=== PATIENT | female | born 1935 | race Caucasian/White ===

== ENCOUNTER 2018-07-17 23:12 | Inpatient (IN) | payer MEDICARE, OTHER ==
[~2018-07-17] VITALS: Ht 162.6 cm; Wt 73.0 kg
[2018-07-18] VITALS (9 sets, daily range): BP systolic 111–145; BP diastolic 58–82; PULSE 90–137; RESP 18–20; Ht 162.6 cm; Wt 73.0 kg
[2018-07-18] MEDS ORDERED: DILTIAZEM 25 MG INJ IV ONE (00:30)
[2018-07-18] MEDS ORDERED: FUROSEMIDE 40 MG INJ IV ONE (01:00)
[2018-07-18] MEDS ORDERED: FLUT1BLS INHALATION (01:58)
[2018-07-18] MEDS ORDERED: RAMI5CAP64 PO (01:58)
[2018-07-18] MEDS ORDERED: ISOS30TA67 PO (01:58)
[2018-07-18] MEDS ORDERED: RIVA10TA PO (01:58)
[2018-07-18] MEDS ORDERED: FURO20TA3 PO (01:58)
[2018-07-18] MEDS ORDERED: METO-448 PO (01:58)
[2018-07-18] MEDS ORDERED: ASPI-817 PO (01:58)
[2018-07-18] MEDS ORDERED: ATRO INHALATION (01:58)
[2018-07-18] MEDS ORDERED: MET25 PO (01:58)
[2018-07-18] MEDS ORDERED: LEVO500T10 PO (01:58)
[2018-07-18] MEDS ORDERED: LEVA15HF6 INH (01:58)
--- NOTE | 2018-07-18 02:28 | ERD ---
ER Documentation Chief Complaint Chief Complaint SOB, Cough, CP, SHARP x 1 week HPI This is an 83-year-old female comes in with shortness of breath chest pain and cough. Chest pain is mild to moderate intensity no exacerbating or alleviating factors. Patient has a history of A. fib and states she has been sent compliant with her medications. Pain is mild to moderate in intensity with no exacerbating or alleviating factors. ROS All systems reviewed and are negative except as per history of present illness. Medications Home Meds Reported Medications Isosorbide Mononitrate* (Isosorbide Mononitrate*) 30 Mg Tab.er.24h, 30 MG PO DAILY, TAB 07/18/18 Levalbuterol* (Xopenex* HFA) 15 Gm Inha, 2 PUFFS INH Q4H PRN for WHEEZING AND SOB, INHALER 07/18/18 Furosemide* (Furosemide*) 20 Mg Tablet, 20 MG PO DAILY, #60 TAB 07/18/18 Ipratropium [place]* (Atrovent HFA*) 12.9 Gm Aer.w.adap, 2 PUFF INHALATION Q4H for SHORTNESS OF BREATH, #1 INHALER 07/18/18 Methotrexate* (Methotrexate*) 2.5 Mg Tab, 20 MG PO ONCE A WEEK, TAB TAKE 8 TABLETS BY MOUTH EVERY Saturdays07/18/18 Fluticasone/Vilanterol (Breo Ellipta 200-25 Mcg INH) 1 Each Blst.w.dev, 1 PUFF INHALATION DAILY, #1 INHALER 07/18/18 Ramipril (Ramipril) 5 Mg Capsule, 5 MG PO DAILY, CAP 07/18/18 Rivaroxaban* (Xarelto*) 10 Mg Tablet, 10 MG PO DAILY, TAB 07/18/18 Metoprolol Tartrate* (Lopressor*) 25 Mg Tab, 37.5 MG PO BID, #60 TAB 07/18/18 Aspirin* (Aspirin* EC) 81 Mg Tablet.dr, 81 MG PO DAILY, TAB 07/18/18 Levofloxacin* (Levofloxacin*) 500 Mg Tablet, 500 MG PO DAILY, TAB 07/18/18 Allergies Allergies: Coded Allergies: No Known Allergy (Unverified , 07/17/18) PMhx/Soc History of Surgery: No Anesthesia Reaction: No Hx Neurological Disorder: No Hx Respiratory Disorders: Yes (Asthma) Hx Cardiac Disorders: Yes (HTN, AF) Hx Psychiatric Problems: No Hx Alcohol Use: No Hx Substance Use: No Hx Tobacco Use: No Smoking Status: Never smoker Physical Exam Vitals Vital Signs Date Temp Pulse Resp B/P (MAP) Pulse Ox O2 O2 Flow FiO2 Time Delivery Rate 07/18/18 124 22 116/79 95 Room Air 01:56 (91) 07/18/18 102 26 145/88 97 Room Air 00:50 (107) 07/18/18 105 22 160/77 95 Room Air 00:30 (104) 07/17/18 99.7 117 20 174/98 97 23:24 (123) Physical Exam Const: No acute distress Head: Atraumatic Eyes: Normal Conjunctiva ENT: Normal External Ears, Nose and Mouth. Neck: Full range of motion. No meningismus. Resp: Clear to auscultation bilaterally Cardio: Regular rate and rhythm, no murmurs Abd: Soft, non tender, non distended. Normal bowel sounds Skin: No petechiae or rashes Back: No midline or flank tenderness Ext: No cyanosis, or edema Neur: Awake and alert Psych: Normal Mood and Affect Result Diagram: 07/18/18 0006 07/18/18 0005 Results 24 hrs Laboratory Tests Test 07/18/18 00:05 07/18/18 00:06 Prothrombin Time 13.4 Sec Prothrombin Time Ratio 1.0 INR International Normalized Ratio 1.01 Activated Partial Thromboplast Time 30.7 Sec Sodium Level 143 mmol/L Potassium Level 3.8 mmol/L Chloride Level 100 mmol/L Carbon Dioxide Level 27 mmol/L Anion Gap 16 Blood Urea Nitrogen 19 mg/dl Creatinine 0.73 mg/dl Est Glomerular Filtrat Rate mL/min mL/min Glucose Level 147 mg/dl Calcium Level 9.8 mg/dl Total Bilirubin 0.4 mg/dl Direct Bilirubin 0.00 mg/dl Indirect Bilirubin 0.4 mg/dl Aspartate Amino Transf (AST/SGOT) 23 IU/L Alanine Aminotransferase (ALT/SGPT) 24 IU/L Alkaline Phosphatase 73 IU/L Troponin I < 0.012 ng/ml B-Type Natriuretic Peptide 1300 PG/ML Total Protein 8.0 g/dl Albumin 4.5 g/dl Globulin 3.50 g/dl Albumin/Globulin Ratio 1.28 Lipase 61 U/L White Blood Count 11.6 10^3/ul Red Blood Count 4.51 10^6/ul Hemoglobin 13.3 g/dl Hematocrit 40.8 % Mean Corpuscular Volume 90.5 fl Mean Corpuscular Hemoglobin 29.5 pg Mean Corpuscular Hemoglobin Concent 32.6 g/dl Red Cell Distribution Width 12.6 % Platelet Count 282 10^3/UL Mean Platelet Volume 9.9 fl Immature Granulocytes % 0.500 % Neutrophils % 69.1 % Lymphocytes % 17.4 % Monocytes % 12.4 % Eosinophils % 0.3 % Basophils % 0.3 % Nucleated Red Blood Cells % 0.0 /100WBC Immature Granulocytes # 0.060 10^3/ul Neutrophils # 8.0 10^3/ul Lymphocytes # 2.0 10^3/ul Monocytes # 1.4 10^3/ul Eosinophils # 0.0 10^3/ul Basophils # 0.0 10^3/ul Nucleated Red Blood Cells # 0.0 10^3/ul Current Medications Medications Dose Sig/Rhys Start Time Status Last (Trade) Ordered Route PRN Stop Time Admin Dose Reason Admin Diltiazem 10 mg ONCE ONCE 07/18/18 DC 07/18/18 HCl IV 00:30 00:25 (Cardizem Iv) 07/18/18 00:31 Furosemide 40 mg ONCE ONCE 07/18/18 DC 07/18/18 (Lasix) IV 01:00 00:47 07/18/18 01:01 Procedures/MDM Emergency department course: Patient seen by me triage was placed in bed from evaluation be placed on continuous cardiac monitoring given dose of Cardizem intravenously. Given dose of Lasix as well. Diagnostic data: EKG: Rate/Rhythm: Irregular rhythm, tachycardic rate QRS, ST, T-waves: [No changes consistent w/ acute ischemia] Impression: A. fib with RVR Rhythm strip: Post Cardizem infusion Rate/Rhythm: Irregular rhythm, normal rate Impression: Rate controlled atrial fibrillation Chest X-ray 1V Interpreted by me: Soft Tissue: No acute abnormalities Bones: No acute abnormalities Mediastinum/Cardiac Silhouette/Lungs: [No acute abnormalities] Medical decision making: Patient's symptoms are concerning for cardiac cause w ill require inpatient workup and continuous monitoring. Further w/u for ischemia, arrhythmia, PE or dissection will be deferred to the inpatient team. Accepting Care Team: Current data and ongoing care discussed. Time: 1:30 AM Primary Provider: Dr. Kahn Consulting: [XOXOXO] Outstanding Data: none Departure Diagnosis: Primary Impression: Chest pain Chest pain type: unspecified Qualified Codes: R07.9 - Chest pain, unspecified Condition: Serious SAUNDRA MAGALLANES Jul 18, 2018 02:28
[2018-07-18] MEDS: DILTIAZEM 25 MG INJ IV SCH ×3 (06:27→07:54)
[2018-07-18] MEDS: PANTOPRAZOLE (EC) 40 MG TAB PO SCH (06:53)
--- NOTE | 2018-07-18 07:41 | HP ---
Date/Time of Note Date/Time of Note DATE: 07/18/18 TIME: 07:38 Assessment/Plan Lines/Catheters IV Catheter Type (from Nrsg): Saline Lock Assessment/Plan Assessment/Plan 1.A. fibrillation with rapid ventricular rate 2.HTN with chf 3.Bronchial asthma 4.Atherosclerotic cv disease 5.JUVENTINO 6.Low iron level 7.mild elevation of blood sugar. Result Diagram: 07/18/18 0006 07/18/18 0005 Results 24hrs Laboratory Tests Test 07/18/18 00:03 07/18/18 00:05 07/18/18 00:06 07/18/18 05:23 Iron Level 29 L Total Iron Binding 372 Capacity Percent Iron 8 L Saturation Prothrombin Time 13.4 Prothrombin Time 1.0 Ratio INR International 1.01 Normalized Ratio Activated 30.7 Partial Thromboplast Time Sodium Level 143 Potassium Level 3.8 Chloride Level 100 Carbon Dioxide Level 27 Anion Gap 16 H Blood Urea Nitrogen 19 Creatinine 0.73 Est Glomerular Filtrat Rate mL/min Glucose Level 147 Calcium Level 9.8 Total Bilirubin 0.4 Direct Bilirubin 0.00 Indirect Bilirubin 0.4 Aspartate Amino 23 Transf (AST/SGOT) Alanine 24 Aminotransferase (AL T/SGPT) Alkaline Phosphatase 73 Troponin I < 0.012 < 0.012 B-Type Natriuretic 1300 H Peptide Total Protein 8.0 Albumin 4.5 Globulin 3.50 H Albumin/Globulin 1.28 Ratio Lipase 61 White Blood Count 11.6 H Red Blood Count 4.51 Hemoglobin 13.3 Hematocrit 40.8 Mean Corpuscular 90.5 Volume Mean Corpuscular 29.5 Hemoglobin Mean Corpuscular 32.6 Hemoglobin Concent Red Cell 12.6 Distribution Width Platelet Count 282 Mean Platelet Volume 9.9 Immature 0.500 H Granulocytes % Neutrophils % 69.1 Lymphocytes % 17.4 Monocytes % 12.4 H Eosinophils % 0.3 Basophils % 0.3 Nucleated Red Blood 0.0 Cells % Immature 0.060 H Granulocytes # Neutrophils # 8.0 H Lymphocytes # 2.0 Monocytes # 1.4 H Eosinophils # 0.0 Basophils # 0.0 Nucleated Red Blood 0.0 Cells # Magnesium Level 2.0 Creatine Kinase 51 Creatine Kinase 1.3 Index Creatinine Kinase MB 0.64 (Mass) Thyroid Stimulating Pending Hormone (TSH) HPI/ROS Admit Date/Time Admit Date/Time Jul 18, 2018 at 01:52 PMH/Family/Social Past Medical History Medications Current Medications Diltiazem HCl (Cardizem Iv) 10 mg Q1H IV Last administered on 07/18/18at 06:53; Admin Dose 10 MG; Start 07/18/18 at 05:30; Stop 07/18/18 at 08:30 Aspirin (Aspirin) 81 mg DAILY PO ; Start 07/18/18 at 09:00 Fluticasone/ Vilanterol (Breo Ellipta 100-25 Mcg Inh) 1 inh DAILY INH ; Start 07/18/18 at 09:00 Furosemide (Lasix) 20 mg BID DIURETICS IV ; Start 07/18/18 at 09:00 Isosorbide Mononitrate (Imdur) 30 mg DAILY PO ; Start 07/18/18 at 09:00 Ipratropium [place] (Atrovent 0.02% (Neb)) 0.5 mg Q6HWA RESP THERAPY HHN ; Start 07/18/18 at 08:00 Levalbuterol (Xopenex Neb) 0.31 mg Q6H RESP THERAPY PRN HHN SHORTNESS OF BREATH; Start 07/18/18 at 06:00 Metoprolol Tartrate (Lopressor) 37.5 mg BID PO ; Start 07/18/18 at 09:00 Rivaroxaban (Xarelto) 10 mg WITH DINNER PO ; Start 07/18/18 at 18:00 Potassium Chloride (Micro-K) 8 meq DAILY PO ; Start 07/18/18 at 09:00 Pantoprazole (Protonix Tab) 40 mg DAILY@06 PO Last administered on 07/18/18at 06:53; Admin Dose 40 MG; Start 07/18/18 at 06:00 Coded Allergies: No Known Allergy (Unverified , 07/19/18) The patient has seasonal allergies; her breathing getting worse when there is density smoking place. Discussed peanut knots presence of animals around. It become clear that there are places when she feels she cannot tolerate the environment but she did not put much attention to that. Discussed to be more attentive. Allergic test was planned. Social History Smoking Status: Never smoker Exam/Review of Systems Vital Signs Vitals Vital Signs Date Temp Pulse Resp B/P (MAP) Pulse Ox O2 O2 Flow FiO2 Time Delivery Rate 07/18/18 98.9 90 18 135/79 98 Room Air 07:26 (97) 07/18/18 2.0 06:25 GUILLE VICENTE MD Jul 18, 2018 07:41
[2018-07-18] MEDS: FLUTICASONE/VILANTEROL 100-25 INH SCH (08:51)
[2018-07-18] MEDS: POTASSIUM CHLORIDE (SR) 8 MEQ CAP PO SCH (08:53)
[2018-07-18] MEDS ORDERED: ASPIRIN 81 MG TAB PO SCH (09:00)
[2018-07-18] MEDS ORDERED: FUROSEMIDE 20 MG INJ IV SCH (09:00)
[2018-07-18] MEDS ORDERED: METOPROLOL 25 MG TAB PO SCH (09:00)
[2018-07-18] MEDS ORDERED: ISOSORBIDE MONONITRATE(SR)30 MG TAB PO SCH (09:00)
--- NOTE | 2018-07-18 13:15 | RADRPT ---
Echocardiogram Report Patient Name: TONY DALEPatient ID: [id number] : 1935 (83y 1m)Study Date: 07/18/2018 11:39:36 AM Gender: FAccession #: [id number] Tech: Bishop Case [facility] Location: [facility] Ref.Physician: OTILIA WHEELER Height(Cm): BSA: Weight(Kg): Quality: AdequateAccount #: Procedures: Echocardiographic Report: Transthoracic echocardiogram with complete 2D, M-Mode, and doppler examination. Indications: Atrial Fibrillation, and Congestive Heart Failure. Measurements: 2D/M Mode Doppler Measurement Value Normal Range Measurement Value Normal Range LVIDd 2D 3.6 [ 3.8 - 5.2 ] cm AV Mean Ros[place] 1.1 [ 70.0 - 90.0 ] cm/sec LVIDs 2D 3.2 [ 2.2 - 3.5 ] cm AV Mean PG 6.0 [ 2.0 - 4.0 ] mmHg LVPWd 2D 1.1 [ 0.6 - 0.9 ] cm AV Peak Rosendo 2.1 [ 100.0 - 170.0 ] cm/sec IVSd 2D 1.1 [ 0.6 - 0.9 ] cm AV Peak PG 17.0 [ 2.0 - 9.0 ] mmHg AoR Diam 2D 2.9 [ 2.3 - 3.1 ] cm AV VTI 26.4 cm EDV 2D 55.9 [ 46.0 - 106.0 ] ml AI Peak PG 94.0 mmHg ESV 2D 39.4 [ 14.0 - 42.0 ] ml AI Peak Rosendo 4.9 cm/sec EF 2D 29.5 [ 54.0 - 74.0 ] percent AI PHT 484.0 msec LA Dimen 2D 4.0 [ 2.7 - 3.8 ] cm LVOT Mean Rosendo 0.7 [ 60.0 - 80.0 ] cm/sec LVOT Mean PG 2.0 [ 1.0 - 3.0 ] mmHg LVOT Peak Rosendo 1.0 [ 70.0 - 110.0 ] cm/sec LVOT Peak PG 4.0 [ 2.0 - 6.0 ] mmHg LVOT VTI 16.5 [ 20.0 - 30.0 ] cm MV E Peak Rosendo 1.4 [ 60.0 - 130.0 ] cm/sec MV Decel Time 194 [ 104 - 258 ] msec Lat E` Rosendo 0.1 [ 10.0 - 15.0 ] cm/sec Lateral E/E` 23.3 [ 1.0 - 2.0 ] ratio TR Peak Rosendo 2.6 [ 100.0 - 280.0 ] cm/sec TR Peak PG 28.0 mmHg RVSP 36.0 [ 10.0 - 36.0 ] mmHg RA Pressure 8.0 mmHg Findings: Left Ventricle: Normal left ventricular systolic function. Normal left ventricular cavity size. Mild concentric left ventricular hypertrophy. Ejection fraction is visually estimated at 55 %. Tissue Doppler/Mitral Doppler indices are indeterminate in this study due to the presence of atrial fibrillation. Right Ventricle: Normal right ventricular size. Normal right ventricular systolic function. Left Atrium: There is moderate enlargement of left atrium. Right Atrium: There is moderate enlargement of right atrium. Mitral Valve: Normal appearance of the mitral valve. Mild mitral valve regurgitation. Aortic Valve: Normal appearance of the aortic valve. No hemodynamically significant aortic stenosis by doppler. Mild to moderate aortic valve regurgitation. Tricuspid Valve: Normal appearance of the tricuspid valve. Estimated peak PA systolic pressure 36 mmHg. There is mild tricuspid regurgitation. Pulmonic Valve: Pulmonic valve not well visualized. Pericardium: Normal pericardium with no significant pericardial effusion. Aorta: Normal aortic root. IVC: Dilated IVC with respiratory collapse consistent with elevated right atrial pressure. Conclusions: Normal left ventricular systolic function. Normal left ventricular cavity size. Mild concentric left ventricular hypertrophy. Ejection fraction is visually estimated at 55 %. Tissue Doppler/Mitral Doppler indices are indeterminate in this study due to the presence of atrial fibrillation. Mild to moderate aortic valve regurgitation. Estimated peak PA systolic pressure 36 mmHg. Dilated IVC with respiratory collapse consistent with elevated right atrial pressure. Electronically Signed By: Otilia Wheeler 2018-07-18 13:14:57 PDT
[2018-07-18] MEDS ORDERED: METOPROLOL 25 MG TAB PO ONE (13:30)
--- NOTE | 2018-07-18 13:40 | CONS ---
Assessment/Plan Assessment/Plan Hospital Course (Demo Recall) Acute respiratory failure: Likely multifactorial including CHF but also with ronchi/wheezing concerning for asthma exacerbation in setting of recent likely viral URI Acute on chronic diastolic CHF: EF preserved. Mild-mod AR. possibly due to afib with RVR and viral illness Chronic afib with RVR: On Xarelto as outpt but incorrect dose. Should be 20mg d aily as normal renal function. Rates mostly controlled Reported CAD: no obstructive disease on cardiac cath 6 months ago per pt/family HTN Asthma with likely exacerbation -decrease lasix to 20mg PO daily as appears euvolemic -increase to Xarelto 20mg -stop ASA -increase to metoprolol 50mg BID for now. Alternatively may switch to diltiazem with asthma -stop imdur as no obstructive CAD -?steroids/nebs for asthma exacerbation Consultation Date/Type/Reason Admit Date/Time Jul 18, 2018 at 01:52 Date of Consultation: Jul 18, 2018 Type of Consult Cardiology Reason for Consultation Afib, CHF Requesting Provider: GUILLE VICENTE MD Date/Time of Note DATE: 07/18/18 TIME: 13:28 Hx of Present Illness 83 yo F with a h/o chronic afib on Xarelto, chronic diastolic CHF, reported CAD but per pt cardiac cath 6 months ago with no obstructive disease, HTN, asthma, who presented with dyspnea, cough, palpitations. She is being treated for CHF and afib with RVR. She notes that about 10 days ago she developed a cough, sore throat, fevers/chills. She continued to have a dry cough and dyspnea and was given a course of antibiotics. She was not feeling well and had continued dyspnea so she decided to come in for evaluation. She was given IV lasix and IV diltiazem. She feels much better but still has a cough. No chest pain except when she coughs. per hPI Past Medical History per hPI Home Meds Reported Medications Isosorbide Mononitrate* (Isosorbide Mononitrate*) 30 Mg Tab.er.24h, 30 MG PO DAILY, TAB 07/18/18 Levalbuterol* (Xopenex* HFA) 15 Gm Inha, 2 PUFFS INH Q4H PRN for WHEEZING AND SOB, INHALER 07/18/18 Furosemide* (Furosemide*) 20 Mg Tablet, 20 MG PO DAILY, #60 TAB 07/18/18 Ipratropium [place]* (Atrovent HFA*) 12.9 Gm Aer.w.adap, 2 PUFF INHALATION Q4H for SHORTNESS OF BREATH, #1 INHALER 07/18/18 Methotrexate* (Methotrexate*) 2.5 Mg Tab, 20 MG PO ONCE A WEEK, TAB TAKE 8 TABLETS BY MOUTH EVERY Saturdays07/18/18 Fluticasone/Vilanterol (Breo Ellipta 200-25 Mcg INH) 1 Each Blst.w.dev, 1 PUFF INHALATION DAILY, #1 INHALER 07/18/18 Ramipril (Ramipril) 5 Mg Capsule, 5 MG PO DAILY, CAP 07/18/18 Rivaroxaban* (Xarelto*) 10 Mg Tablet, 10 MG PO DAILY, TAB 07/18/18 Metoprolol Tartrate* (Lopressor*) 25 Mg Tab, 37.5 MG PO BID, #60 TAB 07/18/18 Aspirin* (Aspirin* EC) 81 Mg Tablet.dr, 81 MG PO DAILY, TAB 07/18/18 Levofloxacin* (Levofloxacin*) 500 Mg Tablet, 500 MG PO DAILY, TAB 07/18/18 Medications Current Medications Fluticasone/ Vilanterol (Breo Ellipta 100-25 Mcg Inh) 1 inh DAILY INH Last administered on 07/18/18at 08:51; Admin Dose 1 INH; Start 07/18/18 at 09:00 Ipratropium [place] (Atrovent 0.02% (Neb)) 0.5 mg Q6HWA RESP THERAPY HHN ; Start 07/18/18 at 08:00 Levalbuterol (Xopenex Neb) 0.31 mg Q6H RESP THERAPY PRN HHN SHORTNESS OF BREATH; Start 07/18/18 at 06:00 Potassium Chloride (Micro-K) 8 meq DAILY PO Last administered on 07/18/18at 08:53; Admin Dose 8 MEQ; Start 07/18/18 at 09:00 Pantoprazole (Protonix Tab) 40 mg DAILY@06 PO Last administered on 07/18/18at 06:53; Admin Dose 40 MG; Start 07/18/18 at 06:00 Metoprolol Tartrate (Lopressor) 50 mg BID PO ; Start 07/18/18 at 21:00 Rivaroxaban (Xarelto) 20 mg WITH DINNER PO ; Start 07/18/18 at 18:00 Furosemide (Lasix) 20 mg DAILY PO ; Start 07/19/18 at 09:00 Metoprolol Tartrate (Lopressor) 25 mg ONCE ONCE PO Last administered on 07/18/18at 13:27; Admin Dose 25 MG; Start 07/18/18 at 13:30; Stop 07/18/18 at 13:31 Allergies: Coded Allergies: No Known Allergy (Unverified , 07/17/18) Social History Smoking Status: Never smoker Exam/Review of Systems Exam Vitals Vital Signs Date Temp Pulse Resp B/P (MAP) Pulse Ox O2 O2 Flow FiO2 Time Delivery Rate 07/18/18 118 12:00 07/18/18 98.2 18 114/58 95 Room Air 11:09 (76) 07/18/18 2.0 08:10 Constitutional: alert, oriented Psych: no complaints, nl mood/affect Head: normocephalic, atraumatic Neck: supple; No jvd Respiratory: congested cough, crackles/rales (mild at bases), wheezing (mild); No clear to auscultation Cardiovascular: systolic murmur (2/6 REGGIE); No regular rate and rhythm (IRIR), No edema Gastrointestinal: soft, non-tender; No distended Neurological: nl mental status, nl speech Skin: No rash or lesions Results Result Diagram: 07/18/18 0006 07/18/18 0005 Results 24hrs Laboratory Tests Test 07/18/18 00:03 07/18/18 00:05 07/18/18 00:06 07/18/18 05:23 Iron Level 29 L Total Iron Binding 372 Capacity Percent Iron 8 L Saturation Prothrombin Time 13.4 Prothrombin Time 1.0 Ratio INR International 1.01 Normalized Ratio Activated 30.7 Partial Thromboplast Time Sodium Level 143 Potassium Level 3.8 Chloride Level 100 Carbon Dioxide Level 27 Anion Gap 16 H Blood Urea Nitrogen 19 Creatinine 0.73 Est Glomerular Filtrat Rate mL/min Glucose Level 147 Calcium Level 9.8 Total Bilirubin 0.4 Direct Bilirubin 0.00 Indirect Bilirubin 0.4 Aspartate Amino 23 Transf (AST/SGOT) Alanine 24 Aminotransferase (AL T/SGPT) Alkaline Phosphatase 73 Troponin I < 0.012 < 0.012 B-Type Natriuretic 1300 H Peptide Total Protein 8.0 Albumin 4.5 Globulin 3.50 H Albumin/Globulin 1.28 Ratio Lipase 61 White Blood Count 11.6 H Red Blood Count 4.51 Hemoglobin 13.3 Hematocrit 40.8 Mean Corpuscular 90.5 Volume Mean Corpuscular 29.5 Hemoglobin Mean Corpuscular 32.6 Hemoglobin Concent Red Cell 12.6 Distribution Width Platelet Count 282 Mean Platelet Volume 9.9 Immature 0.500 H Granulocytes % Neutrophils % 69.1 Lymphocytes % 17.4 Monocytes % 12.4 H Eosinophils % 0.3 Basophils % 0.3 Nucleated Red Blood 0.0 Cells % Immature 0.060 H Granulocytes # Neutrophils # 8.0 H Lymphocytes # 2.0 Monocytes # 1.4 H Eosinophils # 0.0 Basophils # 0.0 Nucleated Red Blood 0.0 Cells # Magnesium Level 2.0 Creatine Kinase 51 Creatine Kinase 1.3 Index Creatinine Kinase MB 0.64 (Mass) Thyroid Stimulating 2.460 Hormone (TSH) Digoxin Level < 0.4 L Test 07/18/18 09:25 07/18/18 11:56 Urine Color YELLOW Urine Clarity CLEAR Urine pH 5.0 Urine Specific 1.010 [place] Urine Ketones NEGATIVE Urine Nitrite NEGATIVE Urine Bilirubin NEGATIVE Urine Urobilinogen NEGATIVE Urine Leukocyte NEGATIVE Esterase Urine Microscopic 1 RBC Urine Microscopic 1 WBC Urine Bacteria FEW A Urine Mucus FEW A Urine Hemoglobin 2+ H Urine Glucose NEGATIVE Urine Total Protein NEGATIVE Creatine Kinase 43 Creatine Kinase 1.4 Index Creatinine Kinase MB 0.60 (Mass) Troponin I < 0.012 Medications Medication Current Medications Fluticasone/ Vilanterol (Breo Ellipta 100-25 Mcg Inh) 1 inh DAILY INH Last administered on 07/18/18at 08:51; Admin Dose 1 INH; Start 07/18/18 at 09:00 Ipratropium [place] (Atrovent 0.02% (Neb)) 0.5 mg Q6HWA RESP THERAPY HHN ; Start 07/18/18 at 08:00 Levalbuterol (Xopenex Neb) 0.31 mg Q6H RESP THERAPY PRN HHN SHORTNESS OF BREATH; Start 07/18/18 at 06:00 Potassium Chloride (Micro-K) 8 meq DAILY PO Last administered on 07/18/18at 08:53; Admin Dose 8 MEQ; Start 07/18/18 at 09:00 Pantoprazole (Protonix Tab) 40 mg DAILY@06 PO Last administered on 07/18/18at 06:53; Admin Dose 40 MG; Start 07/18/18 at 06:00 Metoprolol Tartrate (Lopressor) 50 mg BID PO ; Start 07/18/18 at 21:00 Rivaroxaban (Xarelto) 20 mg WITH DINNER PO ; Start 07/18/18 at 18:00 Furosemide (Lasix) 20 mg DAILY PO ; Start 07/19/18 at 09:00 Metoprolol Tartrate (Lopressor) 25 mg ONCE ONCE PO Last administered on 07/18/18at 13:27; Admin Dose 25 MG; Start 07/18/18 at 13:30; Stop 07/18/18 at 13:31 OTILIA MARSHALL Jul 18, 2018 13:40
--- NOTE | 2018-07-18 14:10 | CONS ---
DATE OF ADMISSION: 07/18/2018 DATE OF CONSULTATION: TYPE OF CONSULTATION: Pulmonary. REASON FOR CONSULTATION: Shortness of breath. Thank you, Dr. Vicente, for this consultation. HISTORY OF PRESENT ILLNESS: This is an 83-year-old lady with history of congestive cardiac failure, coronary artery disease, obstructive sleep apnea, presents with several-day history of increasing trevor rtness of breath, orthopnea, PND, found to have mildly elevated BNP consistent with congestive cardia c failure. Initial troponins are negative. The patient states her breathing has improved since admi ssion and administration of Lasix. PAST MEDICAL HISTORY: Includes atrial fibrillation on anticoagulation, congestive cardiac failure, o bstructive sleep apnea. MEDICATIONS: Per chart. ALLERGIES: NONE. SOCIAL HISTORY: She is a nonsmoker. No alcohol, no history of drug use. FAMILY HISTORY: Noncontributory. SYSTEMS REVIEW: A 12-point review of systems was negative other than mentioned above. PHYSICAL EXAMINATION: GENERAL: Morbidly obese [place] lady, appears comfortable at rest, in no acute distress. VITAL SIGNS: Currently afebrile, pulse is 93, blood pressure 114/58, O2 saturation 95% on room air. NECK: Supple. No JVD or lymphadenopathy. CARDIAC: S1, S2. No added sounds or murmurs. CHEST: Diminished air entry bilaterally with few rales. ABDOMEN: Soft, nontender. No guarding or rebound. EXTREMITIES: No cyanosis, clubbing, edema. NEUROLOGIC: Grossly intact. No focal deficits. LABORATORY DATA: White count 11.6, hemoglobin 13.3. Chemistry within normal limits. BNP was elevat ed at 1300. DIAGNOSTIC DATA: Chest x-ray was reviewed, which showed no significant infiltrates or effusions. IMPRESSION AND PLAN: 1. Likely acute systolic dysfunction with subsequent transient hypoxemia, now improved with addition of diuretics. 2. Obstructive sleep apnea. 3. Atrial fibrillation, chronic. The patient will require: 1. Continue gentle diuresis. 2. Continue supplemental O2 as needed. 3. Outpatient noninvasive positive pressure ventilation. 4. Anticoagulation for chronic atrial fibrillation. Dictated By: ZULAY WYATT MD SV/NTS Conf#: [id number] DID#: [id number] CC: GUILLE VICENTE MD; OTILIA MARSHALL MD;*EndCC*
[2018-07-18] MEDS: IPRATROPIUM (NEB) 0.5 MG/2.5 ML AMP HHN SCH ×3 (15:53→21:02)
[2018-07-18] MEDS: RIVAROXABAN 20 MG TABLET PO SCH (17:41)
[2018-07-18] MEDS ORDERED: RIVAROXABAN 10 MG TABLET PO SCH (18:00)
[2018-07-18] MEDS: METOPROLOL 50 MG TAB PO SCH (20:37)
[2018-07-18] MEDS ORDERED: METHYLPREDNISOLONE 125 MG INJ IV ONE (21:00)
--- NOTE | 2018-07-18 21:50 | CONS ---
Assessment/Plan Assessment/Plan Hospital Course (Demo Recall) IMPRESSION AND PLAN: leukocytosis REVIEW SMEAR LOOKS REACTIVE MONITOR hypercoagulable state CONT Anticoagulation for chronic atrial fibrillation. HX Low iron level CHECK FERRITIN CHF with acute systolic dysfunction with subsequent transient hypoxemia, now improved with addition of diuretics. Obstructive sleep apnea. ATRIAL fibrillation with rapid ventricular rate HTN with chf Bronchial asthma Atherosclerotic cv disease JUVENTINO mild elevation of blood sugar. Consultation Date/Type/Reason Admit Date/Time Jul 18, 2018 at 01:52 Date of Consultation: Jul 18, 2018 Type of Consult hemeonc Reason for Consultation leukocytosis hypercoagulable state Requesting Provider: GUILLE VICENTE MD Date/Time of Note DATE: 07/18/18 TIME: 21:44 Hx of Present Illness This is an 83-year-old lady with history of congestive cardiac failure, coronary artery disease, obstructive sleep apnea, presents with several-day history of increasing shortness of breath, orthopnea, PND, found to have mildly elevated BNP consistent with congestive cardiac failure. Initial troponins are negative. The patient states her breathing has improved since admission and administration of Lasix. PAST MEDICAL HISTORY: Includes atrial fibrillation on anticoagulation, congestive cardiac failure, obstructive sleep apnea. MEDICATIONS: Per chart. ALLERGIES: NONE. SOCIAL HISTORY: She is a nonsmoker. No alcohol, no history of drug use. FAMILY HISTORY: Noncontributory. SYSTEMS REVIEW: A 12-point review of systems was negative other than mentioned above. Past Medical History Home Meds Reported Medications Isosorbide Mononitrate* (Isosorbide Mononitrate*) 30 Mg Tab.er.24h, 30 MG PO DAILY, TAB 07/18/18 Levalbuterol* (Xopenex* HFA) 15 Gm Inha, 2 PUFFS INH Q4H PRN for WHEEZING AND SOB, INHALER 07/18/18 Furosemide* (Furosemide*) 20 Mg Tablet, 20 MG PO DAILY, #60 TAB 07/18/18 Ipratropium [place]* (Atrovent HFA*) 12.9 Gm Aer.w.adap, 2 PUFF INHALATION Q4H for SHORTNESS OF BREATH, #1 INHALER 07/18/18 Methotrexate* (Methotrexate*) 2.5 Mg Tab, 20 MG PO ONCE A WEEK, TAB TAKE 8 TABLETS BY MOUTH EVERY Saturdays07/18/18 Fluticasone/Vilanterol (Breo Ellipta 200-25 Mcg INH) 1 Each Blst.w.dev, 1 PUFF INHALATION DAILY, #1 INHALER 07/18/18 Ramipril (Ramipril) 5 Mg Capsule, 5 MG PO DAILY, CAP 07/18/18 Rivaroxaban* (Xarelto*) 10 Mg Tablet, 10 MG PO DAILY, TAB 07/18/18 Metoprolol Tartrate* (Lopressor*) 25 Mg Tab, 37.5 MG PO BID, #60 TAB 07/18/18 Aspirin* (Aspirin* EC) 81 Mg Tablet.dr, 81 MG PO DAILY, TAB 07/18/18 Levofloxacin* (Levofloxacin*) 500 Mg Tablet, 500 MG PO DAILY, TAB 07/18/18 Medications Current Medications Fluticasone/ Vilanterol (Breo Ellipta 100-25 Mcg Inh) 1 inh DAILY INH Last administered on 07/18/18at 08:51; Admin Dose 1 INH; Start 07/18/18 at 09:00 Ipratropium [place] (Atrovent 0.02% (Neb)) 0.5 mg Q6HWA RESP THERAPY HHN Last administered on 07/18/18at 21:02; Admin Dose 0.5 MG; Start 07/18/18 at 08:00 Levalbuterol (Xopenex Neb) 0.31 mg Q6H RESP THERAPY PRN HHN SHORTNESS OF BREATH ; Start 07/18/18 at 06:00 Potassium Chloride (Micro-K) 8 meq DAILY PO Last administered on 07/18/18at 08:53; Admin Dose 8 MEQ; Start 07/18/18 at 09:00 Pantoprazole (Protonix Tab) 40 mg DAILY@06 PO Last administered on 07/18/18at 06:53; Admin Dose 40 MG; Start 07/18/18 at 06:00 Metoprolol Tartrate (Lopressor) 50 mg BID PO Last administered on 07/18/18at 20:37; Admin Dose 50 MG; Start 07/18/18 at 21:00 Rivaroxaban (Xarelto) 20 mg WITH DINNER PO Last administered on 07/18/18at 17:41; Admin Dose 20 MG; Start 07/18/18 at 18:00 Furosemide (Lasix) 20 mg DAILY PO ; Start 07/19/18 at 09:00 Ferric Sodium Gluconate Complex 125 mg/Sodium Chloride 100 ml @ 100 mls/hr DAILY@1300 IVPB ; Start 07/19/18 at 13:00; Stop 07/20/18 at 16:00 Methylprednisolone Sodium Succinate (Solu-Medrol) 40 mg ONCE ONCE IV ; Start 07/19/18 at 06:00; Stop 07/19/18 at 06:01 Methylprednisolone Sodium Succinate (Solu-Medrol) 30 mg ONCE IV ; Start 07/20/18 at 06:00; Stop 07/20/18 at 06:01 Methylprednisolone Sodium Succinate (Solu-Medrol) 20 mg ONCE ONCE IV ; Start 07/21/18 at 06:00; Stop 07/21/18 at 06:01 Levofloxacin/ Dextrose 100 ml @ 100 mls/hr Q24H IVPB ; Start 07/18/18 at 21:00; Stop 07/20/18 at 08:00 Allergies: Coded Allergies: No Known Allergy (Unverified , 07/17/18) Social History Smoking Status: Never smoker Exam/Review of Systems Exam Vitals Vital Signs Date Temp Pulse Resp B/P (MAP) Pulse Ox O2 O2 Flow FiO2 Time Delivery Rate 07/18/18 21 21:05 07/18/18 79 18 97 21:03 07/18/18 98.3 145/82 20:04 (103) 07/18/18 Room Air 15:25 07/18/18 2.0 14:25 Exam PHYSICAL EXAMINATION: GENERAL: Morbidly obese Malay lady, appears comfortable at rest, in no acute distress. NECK: Supple. No JVD or lymphadenopathy. CARDIAC: S1, S2. No added sounds or murmurs. CHEST: Diminished air entry bilaterally with few rales. ABDOMEN: Soft, nontender. No guarding or rebound. EXTREMITIES: No cyanosis, clubbing, edema. NEUROLOGIC: Grossly intact. No focal deficits. Results Result Diagram: 07/18/18 0006 07/18/18 0005 Results 24hrs Laboratory Tests Test 07/18/18 00:03 07/18/18 00:05 07/18/18 00:06 07/18/18 05:23 Iron Level 29 L Total Iron Binding 372 Capacity Percent Iron 8 L Saturation Prothrombin Time 13.4 Prothrombin Time 1.0 Ratio INR International 1.01 Normalized Ratio Activated 30.7 Partial Thromboplast Time Sodium Level 143 Potassium Level 3.8 Chloride Level 100 Carbon Dioxide Level 27 Anion Gap 16 H Blood Urea Nitrogen 19 Creatinine 0.73 Est Glomerular Filtrat Rate mL/min Glucose Level 147 Calcium Level 9.8 Total Bilirubin 0.4 Direct Bilirubin 0.00 Indirect Bilirubin 0.4 Aspartate Amino 23 Transf (AST/SGOT) Alanine 24 Aminotransferase (AL T/SGPT) Alkaline Phosphatase 73 Troponin I < 0.012 < 0.012 B-Type Natriuretic 1300 H Peptide Total Protein 8.0 Albumin 4.5 Globulin 3.50 H Albumin/Globulin 1.28 Ratio Lipase 61 White Blood Count 11.6 H Red Blood Count 4.51 Hemoglobin 13.3 Hematocrit 40.8 Mean Corpuscular 90.5 Volume Mean Corpuscular 29.5 Hemoglobin Mean Corpuscular 32.6 Hemoglobin Concent Red Cell 12.6 Distribution Width Platelet Count 282 Mean Platelet Volume 9.9 Immature 0.500 H Granulocytes % Neutrophils % 69.1 Lymphocytes % 17.4 Monocytes % 12.4 H Eosinophils % 0.3 Basophils % 0.3 Nucleated Red Blood 0.0 Cells % Immature 0.060 H Granulocytes # Neutrophils # 8.0 H Lymphocytes # 2.0 Monocytes # 1.4 H Eosinophils # 0.0 Basophils # 0.0 Nucleated Red Blood 0.0 Cells # Magnesium Level 2.0 Creatine Kinase 51 Creatine Kinase 1.3 Index Creatinine Kinase MB 0.64 (Mass) Thyroid Stimulating 2.460 Hormone (TSH) Digoxin Level < 0.4 L Test 07/18/18 09:25 07/18/18 11:56 Urine Color YELLOW Urine Clarity CLEAR Urine pH 5.0 Urine Specific 1.010 [place] Urine Ketones NEGATIVE Urine Nitrite NEGATIVE Urine Bilirubin NEGATIVE Urine Urobilinogen NEGATIVE Urine Leukocyte NEGATIVE Esterase Urine Microscopic 1 RBC Urine Microscopic 1 WBC Urine Bacteria FEW A Urine Mucus FEW A Urine Hemoglobin 2+ H Urine Glucose NEGATIVE Urine Total Protein NEGATIVE Creatine Kinase 43 Creatine Kinase 1.4 Index Creatinine Kinase MB 0.60 (Mass) Troponin I < 0.012 Medications Medication Current Medications Fluticasone/ Vilanterol (Breo Ellipta 100-25 Mcg Inh) 1 inh DAILY INH Last administered on 07/18/18at 08:51; Admin Dose 1 INH; Start 07/18/18 at 09:00 Ipratropium [place] (Atrovent 0.02% (Neb)) 0.5 mg Q6HWA RESP THERAPY HHN Last administered on 07/18/18at 21:02; Admin Dose 0.5 MG; Start 07/18/18 at 08:00 Levalbuterol (Xopenex Neb) 0.31 mg Q6H RESP THERAPY PRN HHN SHORTNESS OF BREATH; Start 07/18/18 at 06:00 Potassium Chloride (Micro-K) 8 meq DAILY PO Last administered on 07/18/18at 08:53; Admin Dose 8 MEQ; Start 07/18/18 at 09:00 Pantoprazole (Protonix Tab) 40 mg DAILY@06 PO Last administered on 07/18/18at 06:53; Admin Dose 40 MG; Start 07/18/18 at 06:00 Metoprolol Tartrate (Lopressor) 50 mg BID PO Last administered on 07/18/18at 20:37; Admin Dose 50 MG; Start 07/18/18 at 21:00 Rivaroxaban (Xarelto) 20 mg WITH DINNER PO Last administered on 07/18/18at 17:41; Admin Dose 20 MG; Start 07/18/18 at 18:00 Furosemide (Lasix) 20 mg DAILY PO ; Start 07/19/18 at 09:00 Ferric Sodium Gluconate Complex 125 mg/Sodium Chloride 100 ml @ 100 mls/hr DAILY@1300 IVPB ; Start 07/19/18 at 13:00; Stop 07/20/18 at 16:00 Methylprednisolone Sodium Succinate (Solu-Medrol) 40 mg ONCE ONCE IV ; Start 07/19/18 at 06:00; Stop 07/19/18 at 06:01 Methylprednisolone Sodium Succinate (Solu-Medrol) 30 mg ONCE IV ; Start 07/20/18 at 06:00; Stop 07/20/18 at 06:01 Methylprednisolone Sodium Succinate (Solu-Medrol) 20 mg ONCE ONCE IV ; Start 07/21/18 at 06:00; Stop 07/21/18 at 06:01 Levofloxacin/ Dextrose 100 ml @ 100 mls/hr Q24H IVPB ; Start 07/18/18 at 21:00; Stop 07/20/18 at 08:00 KTAHLEEN KUMAR MD Jul 18, 2018 21:50
[2018-07-18] MEDS: LEVOFLOXACIN 500MG/D5W (PMX) 100 ML IVPB SCH (22:12)
[2018-07-19] VITALS (16 sets, daily range): BP systolic 112–139; BP diastolic 58–79; PULSE 64–170; RESP 17–20
[2018-07-19] MEDS: PANTOPRAZOLE (EC) 40 MG TAB PO SCH (05:28)
[2018-07-19] MEDS ORDERED: METHYLPREDNISOLONE 40 MG INJ IV ONE (06:00)
--- NOTE | 2018-07-19 07:30 | CONS ---
Assessment/Plan Assessment/Plan Hospital Course (Demo Recall) Acute respiratory failure: Likely multifactorial including CHF but also with ronchi/wheezing concerning for asthma exacerbation in setting of recent likely viral URI. Now improved Acute on chronic diastolic CHF: EF preserved. Mild-mod AR. possibly due to afib with RVR and viral illness. Euvolemic on exam Chronic afib with RVR: On Xarelto as outpt but incorrect dose. Should be 20mg daily as normal renal function. Rates controlled (<110) now Reported CAD: no obstructive disease on cardiac cath 6 months ago per pt/family HTN Asthma with likely exacerbation -lasix 20mg PO daily to keep euvolemic -Xarelto 20mg -metoprolol 50mg BID. Alternatively may switch to diltiazem if asthma does not improve -asthma management per pulm/primary Consultation Date/Type/Reason Admit Date/Time Jul 18, 2018 at 01:52 Initial Consult Date 07/18/18 Type of Consult Cardiology Requesting Provider: GUILLE VICENTE MD Date/Time of Note DATE: 07/19/18 TIME: 07:28 24 HR Interval Summary Free Text/Dictation Still with night sweats. Otherwise breathing has improved. Walked yesterday with minimal SOB. HR mostly <100s Exam/Review of Systems Exam Vitals Vital Signs Date Temp Pulse Resp B/P (MAP) Pulse Ox O2 O2 Flow FiO2 Time Delivery Rate 07/19/18 105 04:22 07/19/18 98.6 20 120/58 95 04:14 (78) 07/18/18 21 21:05 07/18/18 Room Air 15:25 07/18/18 2.0 14:25 Intake and Output 07/18/18 07/18/18 07/19/18 1515:00 23:00 07:00 IntakeIntake Total 240 ml 680 ml 300 ml BalanceBalance 240 ml 680 ml 300 ml Constitutional: alert, oriented Psych: no complaints, nl mood/affect Head: normocephalic, atraumatic Neck: No jvd Respiratory: No clear to auscultation (ronchi left base), No wheezing Cardiovascular: systolic murmur (2/6 REGGIE); No regular rate and rhythm, No edema Gastrointestinal: soft, non-tender; No distended Neurological: nl mental status, nl speech Results Result Diagram: 07/18/18 0006 07/18/18 0005 Results 24hrs Laboratory Tests Test 07/18/18 09:25 07/18/18 11:56 07/19/18 05:15 Urine Color YELLOW Urine Clarity CLEAR Urine pH 5.0 Urine Specific [place] 1.010 Urine Ketones NEGATIVE Urine Nitrite NEGATIVE Urine Bilirubin NEGATIVE Urine Urobilinogen NEGATIVE Urine Leukocyte Esterase NEGATIVE Urine Microscopic RBC 1 Urine Microscopic WBC 1 Urine Bacteria FEW A Urine Mucus FEW A Urine Hemoglobin 2+ H Urine Glucose NEGATIVE Urine Total Protein NEGATIVE Creatine Kinase 43 Creatine Kinase Index 1.4 Creatinine Kinase MB (Mass) 0.60 Troponin I < 0.012 Ferritin 125.0 Medications Medication Current Medications Fluticasone/ Vilanterol (Breo Ellipta 100-25 Mcg Inh) 1 inh DAILY INH Last administered on 07/18/18at 08:51; Admin Dose 1 INH; Start 07/18/18 at 09:00 Ipratropium [place] (Atrovent 0.02% (Neb)) 0.5 mg Q6HWA RESP THERAPY HHN Last administered on 07/18/18at 21:02; Admin Dose 0.5 MG; Start 07/18/18 at 08:00 Levalbuterol (Xopenex Neb) 0.31 mg Q6H RESP THERAPY PRN HHN SHORTNESS OF BREATH; Start 07/18/18 at 06:00 Potassium Chloride (Micro-K) 8 meq DAILY PO Last administered on 07/18/18at 08:53; Admin Dose 8 MEQ; Start 07/18/18 at 09:00 Pantoprazole (Protonix Tab) 40 mg DAILY@06 PO Last administered on 07/19/18at 05:28; Admin Dose 40 MG; Start 07/18/18 at 06:00 Metoprolol Tartrate (Lopressor) 50 mg BID PO Last administered on 07/18/18at 20:37; Admin Dose 50 MG; Start 07/18/18 at 21:00 Rivaroxaban (Xarelto) 20 mg WITH DINNER PO Last administered on 07/18/18at 17:41; Admin Dose 20 MG; Start 07/18/18 at 18:00 Furosemide (Lasix) 20 mg DAILY PO ; Start 07/19/18 at 09:00 Ferric Sodium Gluconate Complex 125 mg/Sodium Chloride 100 ml @ 100 mls/hr DAILY@1300 IVPB ; Start 07/19/18 at 13:00; Stop 3/22/19 at 16:00 Methylprednisolone Sodium Succinate (Solu-Medrol) 30 mg ONCE IV ; Start 07/20/18 at 06:00; Stop 07/20/18 at 06:01 Methylprednisolone Sodium Succinate (Solu-Medrol) 20 mg ONCE ONCE IV ; Start 07/21/18 at 06:00; Stop 07/21/18 at 06:01 Levofloxacin/ Dextrose 100 ml @ 100 mls/hr Q24H IVPB Last administered on 07/18/18at 22:12; Admin Dose 100 MLS/HR; Start 07/18/18 at 21:00; Stop 07/20/18 at 08:00 OTILIA MARSHALL Jul 19, 2018 07:30
[2018-07-19] MEDS: POTASSIUM CHLORIDE (SR) 8 MEQ CAP PO SCH (08:37)
[2018-07-19] MEDS: METOPROLOL 50 MG TAB PO SCH ×2 (08:37→21:04)
[2018-07-19] MEDS: FLUTICASONE/VILANTEROL 100-25 INH SCH (08:37)
[2018-07-19] MEDS: FUROSEMIDE 20 MG TAB PO SCH (08:37)
[2018-07-19] MEDS: IPRATROPIUM (NEB) 0.5 MG/2.5 ML AMP HHN SCH ×3 (08:45→20:44)
[2018-07-19] MEDS ORDERED: DILTIAZEM 30 MG TAB PO SCH (09:30)
[2018-07-19] MEDS ORDERED: DILTIAZEM (CD) 120 MG CAP PO ONE ×2 (09:40→10:00)
[2018-07-19] MEDS: DILTIAZEM (CD) 120 MG CAP PO SCH (09:46)
--- NOTE | 2018-07-19 11:57 | PN ---
Date/Time of Note Date/Time of Note DATE: 07/19/18 TIME: 11:51 Assessment/Plan VTE Prophylaxis Risk score (from Ns)>0 risk: 3 SCD applied (from [facility] [place] No SCD contraindicated: low risk/ambulating Pharmacological prophylaxis: LMWH Lines/Catheters IV C[facility]ter Type (from [facility] [place] line still needed: No Urinary Cath still in place: No Reason Cath still needed: urinary retention Assessment/Plan Assessment/Plan 1. Bronchial asthma exacerbation after upper respiratory infection, getting worse now with worsening of her shortness of breath and chest pain while coughing and moderate amount of yellowish sputum production; almost no change comparing with the yesterday's evaluation. 2. Hypertensive heart disease with systolic dysfunction; now improved with addition of diuretics.Continue gentle diuresis 3.hypoxemia-improving- Continue supplemental O2 as needed. 4. Obstructive sleep apnea. 5. Atrial fibrillation, with rapid ventricular rate currently on Xarelto .not known degenerative Cardizem before or digoxin .ance chronic. 6. Bronchitis 7. Bilateral chest pain most probably pleuritic 8. Very low iron level 9. Bilateral bunions 10. Osteoarthritis 11. Loss of taste 12. Weight loss due to not eating particularly last 2 weeks 13. Atherosclerotic cardiovascular disease status post angiography; no details are available for further clarification of coronary artery status. 14. The patient is using peanuts knots working in the garden and not putting attention to being in the environment of a sharp orders, colons, perfumes, animals, smoking people, and other sources of possible allergy. Discussed to be more attentive further allergy. Evaluation will be done. Result Diagram: 07/18/18 0006 07/18/18 0005 Results 24hrs Laboratory Tests Test 07/18/18 11:56 07/19/18 05:15 Creatine Kinase 43 Creatine Kinase Index 1.4 Creatinine Kinase MB (Mass) 0.60 Troponin I < 0.012 Ferritin 125.0 Subjective 24 Hr Interval Summary Free Text/Dictation Still wheezing. Cough with very sticky yellowish sputum production without blood. No fever and chills. Subjective hx not possible: pt critical status Constitutional: improved, poor po, requiring O2; No no complaints, No chills, No diaphoresis, No disoriented, No febrile, No requiring IVF, No other Eyes: No no complaints, No pain, No discharge, No redness, No visual change, No other ENT: congestion, sore throat; No no complaints, No bleeding, No pain, No discharge, No dysphagia, No other Respiratory: cough, pleuritic pain, shortness of breath, sputum, wheezing; No no complaints, No pain, No other Cardiovascular: chest pain, lightheadedness; No no complaints, No edema, No orthopenea, No palpitations, No paroxysmal nocturnal dyspnea, No other Gastrointestinal: passing stool; No no complaints, No pain, No blood, No constipation, No decreased appetite, No diarrhea, No flatus, No nausea, No vomiting, No other Genitourinary: dysuria; No no complaints, No bleeding, No discharge, No flank pain, No hematuria, No other Musculoskeletal: back pain, bone/joint pain, neck pain; No no complaints, No restricted range of motion, No swelling, No other Skin: pruritis; No no complaints, No bruising, No erythema, No laceration, No rash, No skin lesions, No other Neurologic: headache; No no complaints, No confusion, No dizziness, No focal-weakness, No syncope, No seizure, No other Exam/Review of Systems Exam Vitals Vital Signs Date Temp Pulse Resp B/P (MAP) Pulse Ox O2 O2 Flow FiO2 Time Delivery Rate 07/19/18 98.0 94 18 131/79 96 Room Air 11:44 (96) 07/19/18 08:48 07/18/18 2.0 14:25 Intake and Output 07/18/18 07/18/18 07/19/18 1414:59 22:59 06:59 IntakeIntake Total 240 ml 680 ml 300 ml BalanceBalance 240 ml 680 ml 300 ml Constitutional: alert, oriented, well developed, distress, frail, obese; No non-verbal, No other Psych: anxiety; No no complaints, No nl mood/affect, No confusion, No depression, No suicidal, No other Head: normocephalic, atraumatic; No lacerations, No hematomas, No other Eyes: EOMI, PERRL; No nl conjunctiva, No nl lids, No nl sclera, No icteric, No fundi, disc, No other ENMT: nl nasal mucosa & septum (Inferior dentures removed.), tympanic membranes; No nl external ears & nose, No nl lips & teeth, No mucosa pink and moist, No intubated, No other Neck: jvd, bruits; No supple, No non-tender, No masses, No thyromegaly, No nuchal rigidity, No other Respiratory: crackles/rales, diminished breath sounds, wheezing; No clear to auscultation, No normal air movement, No congested cough, No intercostal retraction, No labored breathing, No respirations, No tactile fremitus, No other Cardiovascular: nl pulses, irregular rhythm; No regular rate and rhythm, No bruits, No diastolic murmur, No edema, No gallop, No jugular venous distention (JVD), No murmurs/extra sounds, No rub, No systolic murmur, No S3, No S4, No other Gastrointestinal: soft, distended; No nl liver, spleen, No non-tender, No ascites, No bowel sounds, No firm, No hepatomegaly, No mass, No rebound or guarding, No splenomegaly, No surgical scars, No tender, No other Musculoskeletal: joint tenderness, muscle tone; No nl extremities to inspection, No nl gait and stance, No muscle weakness, No range of motion, No spine non-tender, No swelling, No other Extremities: normal pulses; No calf tenderness, No cyanosis, No clubbing, No edema, No pitting pedal edema, No palpable cord, No tenderness, No other Neurological: CONTRIBUTION SOLICITOR II-XII intact, confused; No nl mental status, No nl speech, No nl strength, No DTR's symmetric, No focal weakness, No lethargic, No numbness, No reflexes, No unresponsive, No other Skin: nl turgor (Decreased.); No rash or lesions, No diaphoresis, No ecchymosis, No laceration, No puncture, No other Lymph: No nl lymph nodes, No enlarged, No nontender, No other Results Results 24hrs Laboratory Tests Test 07/18/18 11:56 07/19/18 05:15 Creatine Kinase 43 Creatine Kinase Index 1.4 Creatinine Kinase MB (Mass) 0.60 Troponin I < 0.012 Ferritin 125.0 Medications Medication Current Medications Fluticasone/ Vilanterol (Breo Ellipta 100-25 Mcg Inh) 1 inh DAILY INH Last administered on 07/19/18at 08:37; Admin Dose 1 INH; Start 07/18/18 at 09:00 Ipratropium [place] (Atrovent 0.02% (Neb)) 0.5 mg Q6HWA RESP THERAPY HHN Last administered on 07/19/18at 08:45; Admin Dose 0.5 MG; Start 07/18/18 at 08:00 Levalbuterol (Xopenex Neb) 0.31 mg Q6H RESP THERAPY PRN HHN SHORTNESS OF BREATH; Start 07/18/18 at 06:00 Potassium Chloride (Micro-K) 8 meq DAILY PO Last administered on 07/19/18at 08:37; Admin Dose 8 MEQ; Start 07/18/18 at 09:00 Pantoprazole (Protonix Tab) 40 mg DAILY@06 PO Last administered on 07/19/18at 05:28; Admin Dose 40 MG; Start 07/18/18 at 06:00 Metoprolol Tartrate (Lopressor) 50 mg BID PO Last administered on 07/19/18at 08:37; Admin Dose 50 MG; Start 07/18/18 at 21:00 Rivaroxaban (Xarelto) 20 mg WITH DINNER PO Last administered on 07/18/18at 17:41; Admin Dose 20 MG; Start 07/18/18 at 18:00 Furosemide (Lasix) 20 mg DAILY PO Last administered on 07/19/18at 08:37; Admin Dose 20 MG; Start 07/19/18 at 09:00 Ferric Sodium Gluconate Complex 125 mg/Sodium Chloride 100 ml @ 100 mls/hr DAILY@1300 IVPB ; Start 07/19/18 at 13:00; Stop 07/20/18 at 16:00 Methylprednisolone Sodium Succinate (Solu-Medrol) 30 mg ONCE IV ; Start 07/20/18 at 06:00; Stop 07/20/18 at 06:01 Methylprednisolone Sodium Succinate (Solu-Medrol) 20 mg ONCE ONCE IV ; Start 07/21/18 at 06:00; Stop 07/21/18 at 06:01 Levofloxacin/ Dextrose 100 ml @ 100 mls/hr Q24H IVPB Last administered on 07/18/18at 22:12; Admin Dose 100 MLS/HR; Start 07/18/18 at 21:00; Stop 07/20/18 at 08:00 Diltiazem HCl (Cardizem Cd) 120 mg DAILY PO Last administered on 07/19/18at 09:46; Admin Dose 120 MG; Start 07/19/18 at 09:44 GUILLE VICENTE MD Jul 19, 2018 11:57
--- NOTE | 2018-07-19 11:57 | HP ---
Date/Time of Note Date/Time of Note DATE: 07/18/18 TIME: 20:58 Assessment/Plan VTE Prophylaxis Risk score (from Ns)>0 risk: 4 SCD applied (from Ns): No SCD contraindicated: low risk/ambulating Pharmacological prophylaxis: LMWH Lines/Catheters IV [facility]from [facility] [place] line still needed: No Urinary Cath still in place: No Reason Cath still needed: urinary retention Assessment/Plan Assessment/Plan 1. Bronchial asthma exacerbation after upper respiratory infection, getting worse now with worsening of her shortness of breath and chest pain while coughing and moderate amount of yellowish sputum production 2. Hypertensive heart disease with systolic dysfunction; now improved with addition of diuretics.Continue gentle diuresis 3.hypoxemia-improving- Continue supplemental O2 as needed. 4. Obstructive sleep apnea. 5. Atrial fibrillation, with rapid ventricular rate currently on Xarelto .not known degenerative Cardizem before or digoxin .unknown compliance chronic. 6. Bronchitis 7. Bilateral chest pain most probably pleuritic 8. Very low iron level 9. Bilateral bunions 10. Osteoarthritis 11. Loss of taste 12. Weight loss due to not eating particularly last 2 weeks 13. Atherosclerotic cardiovascular disease status post angiography; no details are available for further clarification of coronary artery status. Result Diagram: 07/18/18 0006 07/18/18 0005 Results 24hrs Laboratory Tests Test 07/18/18 00:03 07/18/18 00:05 07/18/18 00:06 07/18/18 05:23 Iron Level 29 L Total Iron Binding 372 Capacity Percent Iron 8 L Saturation Prothrombin Time 13.4 Prothrombin Time 1.0 Ratio INR International 1.01 Normalized Ratio Activated 30.7 Partial Thromboplast Time Sodium Level 143 Potassium Level 3.8 Chloride Level 100 Carbon Dioxide Level 27 Anion Gap 16 H Blood Urea Nitrogen 19 Creatinine 0.73 Est Glomerular Filtrat Rate mL/min Glucose Level 147 Calcium Level 9.8 Total Bilirubin 0.4 Direct Bilirubin 0.00 Indirect Bilirubin 0.4 Aspartate Amino 23 Transf (AST/SGOT) Alanine 24 Aminotransferase (AL T/SGPT) Alkaline Phosphatase 73 Troponin I < 0.012 < 0.012 B-Type Natriuretic 1300 H Peptide Total Protein 8.0 Albumin 4.5 Globulin 3.50 H Albumin/Globulin 1.28 Ratio Lipase 61 White Blood Count 11.6 H Red Blood Count 4.51 Hemoglobin 13.3 Hematocrit 40.8 Mean Corpuscular 90.5 Volume Mean Corpuscular 29.5 Hemoglobin Mean Corpuscular 32.6 Hemoglobin Concent Red Cell 12.6 Distribution Width Platelet Count 282 Mean Platelet Volume 9.9 Immature 0.500 H Granulocytes % Neutrophils % 69.1 Lymphocytes % 17.4 Monocytes % 12.4 H Eosinophils % 0.3 Basophils % 0.3 Nucleated Red Blood 0.0 Cells % Immature 0.060 H Granulocytes # Neutrophils # 8.0 H Lymphocytes # 2.0 Monocytes # 1.4 H Eosinophils # 0.0 Basophils # 0.0 Nucleated Red Blood 0.0 Cells # Magnesium Level 2.0 Creatine Kinase 51 Creatine Kinase 1.3 Index Creatinine Kinase MB 0.64 (Mass) Thyroid Stimulating 2.460 Hormone (TSH) Digoxin Level < 0.4 L Test 07/18/18 09:25 07/18/18 11:56 Urine Color YELLOW Urine Clarity CLEAR Urine pH 5.0 Urine Specific 1.010 [place] Urine Ketones NEGATIVE Urine Nitrite NEGATIVE Urine Bilirubin NEGATIVE Urine Urobilinogen NEGATIVE Urine Leukocyte NEGATIVE Esterase Urine Microscopic 1 RBC Urine Microscopic 1 WBC Urine Bacteria FEW A Urine Mucus FEW A Urine Hemoglobin 2+ H Urine Glucose NEGATIVE Urine Total Protein NEGATIVE Creatine Kinase 43 Creatine Kinase 1.4 Index Creatinine Kinase MB 0.60 (Mass) Troponin I < 0.012 HPI/ROS Admit Date/Time Admit Date/Time Jul 18, 2018 at 01:52 Hx of Present Illness History was taken from patient and by conversation with ER physician and RN she was doing fine until about 10 days ago. When she developed symptoms consistent with upper respiratory infection. She had a history of coronary artery disease status post angiography according to patient with no significant coronary artery narrowing ,HTN, asthma, who presented with dyspnea, cough, palpitations. She notes that about 10 days ago she developed a cough, sore throat, fevers/chills. She continued to have a dry cough and dyspnea and was given a course of antibiotics. She does not remember remember what kind of antibiotics were given .she was not feeling well and had continued dyspnea so she decided to come in for evaluation. The day prior to admission she become more severe shortness of breath and started wheezing but she was coughing she was having a severe pain in bilateral chest areas; in the emergency room she was given IV lasix and IV diltiazem after which her heart rate came down but shortness of breath and cough while continuing. She feels much better but still has a cough. No chest pain now. But when she coughs the pain in bilateral hypochondrial area and severe diarrhea is very severe.. ROS Constitutional: improved ( mouth is dry), chills, diaphoresis, fatigue, nausea, poor po, weight change, other (Patient had lost taste) Eyes: No no complaints, No pain, No discharge, No redness, No visual change, No other ENT: congestion, sore throat Respiratory: cough, pleuritic pain, shortness of breath, sputum, other (Sputum is yellowish color denies hemoptysis or hematemesis.); No no complaints, No pain, No wheezing Cardiovascular: chest pain, lightheadedness, orthopenea, palpitations, paroxysmal nocturnal dyspnea (9 her shortness of breath is getting worse however she is having only one pillow orthopnea. Her heart is beating more fast.); No no complaints, No edema, No other Gastrointestinal: No no complaints, No pain, No blood, No constipation, No decreased appetite, No diarrhea, No flatus, No nausea, No passing stool, No vomiting, No other Genitourinary: flank pain; No no complaints, No bleeding, No dysuria, No discharge, No hematuria, No other Musculoskeletal: back pain, bone/joint pain, neck pain; No no complaints, No restricted range of motion, No swelling, No other Skin: rash, skin lesions; No no complaints, No bruising, No erythema, No laceration, No pruritis, No other Neurologic: dizziness, headache; No no complaints, No confusion, No focal-weakness, No syncope, No seizure, No other Endocrine: polydypsia, dry skin; No no complaints, No polyuria, No temp intolerance, No weight change, No other Lymphatic: tender nodes; No no complaints, No adenopathy, No lymphadema, No other Psychological: anxiety; No no complaints, No nl mood/affect, No confusion, No depression, No suicidal, No other Immunologic: No no complaints, No immunodeficiency, No pruritis, No rhinitis, No urticaria, No other PMH/Family/Social Past Medical History Medical History: angina, congestive heart failure, coronary artery disease, hypertension, other (Asthma.) Medications Current Medications Fluticasone/ Vilanterol (Breo Ellipta 100-25 Mcg Inh) 1 inh DAILY INH Last administered on 07/18/18 08:51; Admin Dose 1 INH; Start 07/18/18 at 09:00 Ipratropium [place] (Atrovent 0.02% (Neb)) 0.5 mg Q6HWA RESP THERAPY HHN Last administered on 07/18/18at 15:54; Admin Dose 0.5 MG; Start 07/18/18 at 08:00 Levalbuterol (Xopenex Neb) 0.31 mg Q6H RESP THERAPY PRN HHN SHORTNESS OF BREATH; Start 07/18/18 at 06:00 Potassium Chloride (Micro-K) 8 meq DAILY PO Last administered on 07/18/18 08:53; Admin Dose 8 MEQ; Start 07/18/18 at 09:00 Pantoprazole (Protonix Tab) 40 mg DAILY@06 PO Last administered on 07/18/18 06:53; Admin Dose 40 MG; Start 07/18/18 at 06:00 Metoprolol Tartrate (Lopressor) 50 mg BID PO Last administered on 07/18/18at 20:37; Admin Dose 50 MG; Start 07/18/18 at 21:00 Rivaroxaban (Xarelto) 20 mg WITH DINNER PO Last administered on 07/18/18at 17:41; Admin Dose 20 MG; Start 07/18/18 at 18:00 Furosemide (Lasix) 20 mg DAILY PO ; Start 07/19/18 at 09:00 Coded Allergies: No Known Allergy (Unverified , 07/17/18) Past Surgical History Past Surgical Hx: other (Status post cataract ectomy bilaterally.) Family History Significant Family History: no pertinent family hx Social History Alcohol Use: none Smoking Status: Never smoker Drug Use: none Exam/Review of Systems Vital Signs Vitals Vital Signs Date Temp Pulse Resp B/P (MAP) Pulse Ox O2 O2 Flow FiO2 Time Delivery Rate 07/18/18 115 20:42 07/18/18 98.3 20 145/82 94 20:04 (103) 07/18/18 Room Air 15:25 07/18/18 2.0 14:25 Exam Constitutional: alert, oriented, well developed, distress, frail; No non-verbal, No other Psych: anxiety; No no complaints, No nl mood/affect, No confusion, No depression, No suicidal, No other Head: normocephalic, atraumatic; No lacerations, No hematomas, No other Eyes: EOMI, nl lids, PERRL; No nl conjunctiva, No nl sclera, No icteric, No fundi, disc, No other ENMT: No nl external ears & nose, No nl lips & teeth, No nl nasal mucosa & septum, No mucosa pink and moist, No intubated, No tympanic membranes, No other Neck: jvd, bruits, thyromegaly, nuchal rigidity; No supple, No non-tender, No masses, No other Respiratory: congested cough, diminished breath sounds, wheezing; No clear to auscultation, No crackles/rales, No intercostal retraction, No labored breathing, No respirations, No tactile fremitus, No other Cardiovascular: irregular rhythm, jugular venous distention (JVD), systolic murmur; No regular rate and rhythm, No nl pulses, No bruits, No diastolic murmur, No edema, No gallop, No murmurs/extra sounds, No rub, No S3, No S4, No other Gastrointestinal: soft, bowel sounds; No nl liver, spleen, No non-tender, No ascites, No distended, No firm, No hepatomegaly, No mass, No rebound or guarding, No splenomegaly, No surgical scars, No tender, No other Genitourinary - Female: nl adnexae, nl external genitalia, CVA tenderness; No CMT, No uterus, No other Musculoskeletal: joint tenderness, muscle tone, muscle weakness; No nl extremities to inspection, No nl gait and stance, No range of motion, No spine non-tender, No swelling, No other Extremities: No normal pulses, No calf tenderness, No cyanosis, No clubbing, No edema, No pitting pedal edema, No palpable cord, No tenderness, No other Neurological: AUDIT ASSOCIATE II-XII intact Skin: nl turgor (Decreased.); No rash or lesions, No diaphoresis, No ecchymosis, No laceration, No puncture, No other Lymph: nl lymph nodes; No enlarged, No nontender, No other [place] MTZ MD Jul 18, 2018 21:13
--- NOTE | 2018-07-19 12:19 | CONS ---
Consult Date/Type/Reason Admit Date/Time Jul 18, 2018 at 01:52 Initial Consult Date 07/18/18 Type of Consult Pulmonary Requesting Provider: GUILLE VICENTE MD Date/Time of Note DATE: 07/19/18 TIME: 12:18 Subjective Still with moderate wheezing. Objective Vital Signs Date Temp Pulse Resp B/P (MAP) Pulse Ox O2 O2 Flow FiO2 Time Delivery Rate 07/19/18 98.0 94 18 131/79 96 Room Air 11:44 (96) 07/19/18 08:48 07/18/18 2.0 14:25 Intake and Output 07/18/18 07/18/18 07/19/18 1515:00 23:00 07:00 IntakeIntake Total 240 ml 680 ml 300 ml BalanceBalance 240 ml 680 ml 300 ml Exam PHYSICAL EXAMINATION: GENERAL: Morbidly obese [place] lady, appears comfortable at rest, in no acute distress. VITAL SIGNS: NECK: Supple. No JVD or lymphadenopathy. CARDIAC: S1, S2. No added sounds or murmurs. CHEST: Diminished air entry bilaterally with few rales. ABDOMEN: Soft, nontender. No guarding or rebound. EXTREMITIES: No cyanosis, clubbing, edema. NEUROLOGIC: Grossly intact. No focal deficits. Vent Setting Fraction of Inspired Oxygen pe: 21 Results/Medications Result Diagram: 07/18/18 0006 07/18/18 0005 Results 24 hrs Laboratory Tests Test 07/19/18 05:15 Ferritin 125.0 Medications Current Medications Fluticasone/ Vilanterol (Breo Ellipta 100-25 Mcg Inh) 1 inh DAILY INH Last administered on 07/19/18at 08:37; Admin Dose 1 INH; Start 07/18/18 at 09:00 Ipratropium [place] (Atrovent 0.02% (Neb)) 0.5 mg Q6HWA RESP THERAPY HHN Last administered on 07/19/18at 08:45; Admin Dose 0.5 MG; Start 07/18/18 at 08:00 Levalbuterol (Xopenex Neb) 0.31 mg Q6H RESP THERAPY PRN HHN SHORTNESS OF BREATH; Start 07/18/18 at 06:00 Potassium Chloride (Micro-K) 8 meq DAILY PO Last administered on 07/19/18at 0 8:37; Admin Dose 8 MEQ; Start 07/18/18 at 09:00 Pantoprazole (Protonix Tab) 40 mg DAILY@06 PO Last administered on 07/19/18at 05:28; Admin Dose 40 MG; Start 07/18/18 at 06:00 Metoprolol Tartrate (Lopressor) 50 mg BID PO Last administered on 07/19/18at 08:37; Admin Dose 50 MG; Start 07/18/18 at 21:00 Rivaroxaban (Xarelto) 20 mg WITH DINNER PO Last administered on 07/18/18at 17:41; Admin Dose 20 MG; Start 07/18/18 at 18:00 Furosemide (Lasix) 20 mg DAILY PO Last administered on 07/19/18at 08:37; Admin Dose 20 MG; Start 07/19/18 at 09:00 Ferric Sodium Gluconate Complex 125 mg/Sodium Chloride 100 ml @ 100 mls/hr DAILY@1300 IVPB ; Start 07/19/18 at 13:00; Stop 07/20/18 at 16:00 Methylprednisolone Sodium Succinate (Solu-Medrol) 30 mg ONCE IV ; Start 07/20/18 at 06:00; Stop 07/20/18 at 06:01 Methylprednisolone Sodium Succinate (Solu-Medrol) 20 mg ONCE ONCE IV ; Start 07/21/18 at 06:00; Stop 07/21/18 at 06:01 Levofloxacin/ Dextrose 100 ml @ 100 mls/hr Q24H IVPB Last administered on 07/18/18at 22:12; Admin Dose 100 MLS/HR; Start 07/18/18 at 21:00; Stop 07/20/18 at 08:00 Diltiazem HCl (Cardizem Cd) 120 mg DAILY PO Last administered on 07/19/18at 09:46; Admin Dose 120 MG; Start 07/19/18 at 09:44 Assessment/Plan Hospital Course (Demo Recall) IMPRESSION AND PLAN: 1. Likely acute systolic dysfunction with subsequent transient hypoxemia, now improved with addition of diuretics. 2. Obstructive sleep apnea. 3. Atrial fibrillation, chronic 4. Probable component of acute bronchitis. Recommendations 1. Continue gentle diuresis. 2. Continue supplemental O2 as needed. 3. Outpatient noninvasive positive pressure ventilation. 4. Anticoagulation for chronic atrial fibrillation. 5. Short course of steroids and bronchodilators ZUL[facility] WYATT [facility] Jul 19, 2018 12:19
[2018-07-19] MEDS: SOD FERRIC GLUC COMPLX 125 MG in SOD CHLORIDE 0.9% 100 ML IVPB SCH (12:57)
[2018-07-19] MEDS: RIVAROXABAN 20 MG TABLET PO SCH (17:54)
[2018-07-19] MEDS: LEVOFLOXACIN 500MG/D5W (PMX) 100 ML IVPB SCH (21:03)
--- NOTE | 2018-07-19 22:24 | CONS ---
Assessment/Plan Assessment/Plan Hospital Course (Demo Recall) IMPRESSION AND PLAN: leukocytosis SMEAR- P LOOKS REACTIVE MONITOR CHECK COUNT IN AM hypercoagulable state CONT Anticoagulation for chronic atrial fibrillation. HX Low iron level FERRITIN- P CHF with acute systolic dysfunction with subsequent transient hypoxemia, now improved with addition of diuretics. Obstructive sleep apnea. ATRIAL fibrillation with rapid ventricular rate HTN with chf Bronchial asthma Atherosclerotic cv disease JUVENTINO mild elevation of blood sugar. Consultation Date/Type/Reason Admit Date/Time Jul 18, 2018 at 01:52 Initial Consult Date 07/18/18 [facility]: GUILLE VICENTE MD Date/Time of Note DATE: 07/19/18 TIME: 22:22 24 HR Interval Summary Free Text/Dictation all noted NAD NO FEVER Exam/Review of Systems Exam Vitals Vital Signs Date Temp Pulse Resp B/P (MAP) Pulse Ox O2 O2 Flow FiO2 Time Delivery Rate 07/19/18 111 16 96 21 20:46 07/19/18 98.1 134/63 19:31 (86) 07/19/18 Room Air 16:00 07/18/18 2.0 14:25 Intake and Output 07/18/18 07/18/18 07/19/18 1515:00 23:00 07:00 IntakeIntake Total 240 ml 680 ml 300 ml BalanceBalance 240 ml 680 ml 300 ml Exam GENERAL: Morbidly obese [place] lady, appears comfortable at rest, in no acute distress. NECK: Supple. No JVD or lymphadenopathy. CARDIAC: S1, S2. No added sounds or murmurs. CHEST: Diminished air entry bilaterally with few rales. ABDOMEN: Soft, nontender. No guarding or rebound. EXTREMITIES: No cyanosis, clubbing, edema. NEUROLOGIC: Grossly intact. No focal deficits. Results Result Diagram: 07/18/18 0006 07/18/18 0005 Results 24hrs Laboratory Tests Test 07/19/18 05:15 Ferritin 125.0 Medications Medication Current Medications Fluticasone/ Vilanterol (Breo Ellipta 100-25 Mcg Inh) 1 inh DAILY INH Last administered on 07/19/18at 08:37; Admin Dose 1 INH; Start 07/18/18 at 09:00 Ipratropium [place] (Atrovent 0.02% (Neb)) 0.5 mg Q6HWA RESP THERAPY HHN Last administered on 07/19/18at 20:44; Admin Dose 0.5 MG; Start 07/18/18 at 08:00 Levalbuterol (Xopenex Neb) 0.31 mg Q6H RESP THERAPY PRN HHN SHORTNESS OF BREATH; Start 07/18/18 at 06:00 Potassium Chloride (Micro-K) 8 meq DAILY PO Last administered on 07/19/18at 08:37; Admin Dose 8 MEQ; Start 07/18/18 at 09:00 Pantoprazole (Protonix Tab) 40 mg DAILY@06 PO Last administered on 07/19/18at 05:28; Admin Dose 40 MG; Start 07/18/18 at 06:00 Metoprolol Tartrate (Lopressor) 50 mg BID PO Last administered on 07/19/18at 21:04; Admin Dose 50 MG; Start 07/18/18 at 21:00 Rivaroxaban (Xarelto) 20 mg WITH DINNER PO Last administered on 07/19/18at 17:54; Admin Dose 20 MG; Start 07/18/18 at 18:00 Furosemide (Lasix) 20 mg DAILY PO Last administered on 07/19/18at 08:37; Admin Dose 20 MG; Start 07/19/18 at 09:00 Ferric Sodium Gluconate Complex 125 mg/Sodium Chloride 100 ml @ 100 mls/hr DAILY@1300 IVPB Last administered on 07/19/18at 12:57; Admin Dose 100 MLS/HR; Start 07/19/18 at 13:00; Stop 07/20/18 at 16:00 Methylprednisolone Sodium Succinate (Solu-Medrol) 30 mg ONCE IV ; Start 07/20/18 at 06:00; Stop 07/20/18 at 06:01 Methylprednisolone Sodium Succinate (Solu-Medrol) 20 mg ONCE ONCE IV ; Start 07/21/18 at 06:00; Stop 07/21/18 at 06:01 Levofloxacin/ Dextrose 100 ml @ 100 mls/hr Q24H IVPB Last administered on 07/19/18at 21:03; Admin Dose 100 MLS/HR; Start 07/18/18 at 21:00; Stop 07/20/18 at 08:00 Diltiazem HCl (Cardizem Cd) 120 mg DAILY PO Last administered on 07/19/18at 09:46; Admin Dose 120 MG; Start 07/19/18 at 09:44 KATHLEEN KUMAR MD Jul 19, 2018 22:24
[2018-07-20] VITALS (12 sets, daily range): BP systolic 120–149; BP diastolic 57–79; PULSE 70–98; RESP 17–19
[2018-07-20] MEDS: PANTOPRAZOLE (EC) 40 MG TAB PO SCH (05:10)
[2018-07-20] MEDS ORDERED: METHYLPREDNISOLONE 40 MG INJ IV SCH (06:00)
[2018-07-20] MEDS: IPRATROPIUM (NEB) 0.5 MG/2.5 ML AMP HHN SCH ×3 (08:11→19:45)
[2018-07-20] MEDS: POTASSIUM CHLORIDE (SR) 8 MEQ CAP PO SCH (08:53)
[2018-07-20] MEDS: DILTIAZEM (CD) 120 MG CAP PO SCH (08:54)
[2018-07-20] MEDS: METOPROLOL 50 MG TAB PO SCH ×2 (08:54→21:37)
[2018-07-20] MEDS: FUROSEMIDE 20 MG TAB PO SCH (08:55)
[2018-07-20] MEDS: FLUTICASONE/VILANTEROL 100-25 INH SCH (08:57)
--- NOTE | 2018-07-20 09:42 | CONS ---
Assessment/Plan Assessment/Plan Hospital Course (Demo Recall) Acute respiratory failure: Likely multifactorial including CHF but also with ronchi/wheezing concerning for asthma exacerbation in setting of recent likely viral URI. Now resolved Acute on chronic diastolic CHF: EF preserved. Mild-mod AR. possibly due to afib with RVR and viral illness. Euvolemic on exam Chronic afib with RVR: On Xarelto as outpt but incorrect dose. Should be 20mg daily as normal renal function. Rates controlled Reported CAD: no obstructive disease on cardiac cath 6 months ago per pt/family HTN Asthma with likely exacerbation -ok for d/c from my perspective -please d/c with below cardiac meds -diltiazem 120mg daily -metoprolol 50mg BID -lasix 20mg PO daily -Xarelto 20mg Consultation Date/Type/Reason Admit Date/Time Jul 18, 2018 at 01:52 Initial Consult Date 07/18/18 Type of Consult Cardiology Requesting Provider: GUILLE VICENTE MD Date/Time of Note DATE: 07/20/18 TIME: 09:40 24 HR Interval Summary Free Text/Dictation Diltiazem added and now HR controlled. No SOB with ambulation. Exam/Review of Systems Exam Vitals Vital Signs Date Temp Pulse Resp B/P (MAP) Pulse Ox O2 O2 Flow FiO2 Time Delivery Rate 07/20/18 88 20 96 21 08:12 07/20/18 98.2 144/69 07:31 (94) 07/19/18 Room Air 16:00 07/18/18 2.0 14:25 Intake and Output 07/19/18 07/19/18 07/20/18 1515:00 23:00 07:00 IntakeIntake Total 550 ml 350 ml 350 ml BalanceBalance 550 ml 350 ml 350 ml Constitutional: alert, oriented Psych: no complaints, nl mood/affect Head: normocephalic, atraumatic Neck: No jvd Respiratory: No clear to auscultation (crackles left base only ), No wheezing Cardiovascular: systolic murmur (2/6 REGGIE); No regular rate and rhythm, No edema Gastrointestinal: soft, non-tender; No distended Neurological: nl mental status, nl speech Results Result Diagram: 07/20/18 0547 07/20/18 0547 Results 24hrs Laboratory Tests Test 07/20/18 05:47 White Blood Count 18.2 #H Red Blood Count 4.56 Hemoglobin 13.4 Hematocrit 41.2 Mean Corpuscular Volume 90.4 Mean Corpuscular Hemoglobin 29.4 Mean Corpuscular Hemoglobin Concent 32.5 Red Cell Distribution Width 12.5 Platelet Count 370 # Mean Platelet Volume 10.5 H Immature Granulocytes % 0.800 H Neutrophils % 82.9 H Lymphocytes % 10.9 L Monocytes % 5.3 Eosinophils % 0.0 Basophils % 0.1 Nucleated Red Blood Cells % 0.0 Immature Granulocytes # 0.150 H Neutrophils # 15.0 H Lymphocytes # 2.0 Monocytes # 1.0 H Eosinophils # 0.0 Basophils # 0.0 Nucleated Red Blood Cells # 0.0 Erythrocyte Sedimentation Rate 95 H Sodium Level 143 Potassium Level 4.5 Chloride Level 103 Carbon Dioxide Level 28 Anion Gap 12 Blood Urea Nitrogen 37 H Creatinine 0.78 Est Glomerular Filtrat Rate mL/min Glucose Level 144 Calcium Level 10.1 Ferritin 186.0 Total Bilirubin 0.2 Direct Bilirubin 0.00 Indirect Bilirubin 0.2 Aspartate Amino Transf (AST/SGOT) 19 Alanine Aminotransferase (ALT/SGPT) 22 Alkaline Phosphatase 56 Total Protein 7.3 Albumin 3.9 Globulin 3.40 H Albumin/Globulin Ratio 1.14 Medications Medication Current Medications Fluticasone/ Vilanterol (Breo Ellipta 100-25 Mcg Inh) 1 inh DAILY INH Last administered on 07/20/18at 08:57; Admin Dose 1 INH; Start 07/18/18 at 09:00 Ipratropium [place] (Atrovent 0.02% (Neb)) 0.5 mg Q6HWA RESP THERAPY HHN Last administered on 07/20/18at 08:11; Admin Dose 0.5 MG; Start 07/18/18 at 08:00 Levalbuterol (Xopenex Neb) 0.31 mg Q6H RESP THERAPY PRN HHN SHORTNESS OF BREATH; Start 07/18/18 at 06:00 Potassium Chloride (Micro-K) 8 meq DAILY PO Last administered on 07/20/18at 08:53; Admin Dose 8 MEQ; Start 07/18/18 at 09:00 Pantoprazole (Protonix Tab) 40 mg DAILY@06 PO Last administered on 07/20/18at 05:10; Admin Dose 40 MG; Start 3/20/19 at 06:00 Metoprolol Tartrate (Lopressor) 50 mg BID PO Last administered on 07/20/18 08:54; Admin Dose 50 MG; Start 07/18/18 at 21:00 Rivaroxaban (Xarelto) 20 mg WITH DINNER PO Last administered on 07/19/18at 17:54; Admin Dose 20 MG; Start 07/18/18 at 18:00 Furosemide (Lasix) 20 mg DAILY PO Last administered on 07/20/18at 08:55; Admin Dose 20 MG; Start 07/19/18 at 09:00 Ferric Sodium Gluconate Complex 125 mg/Sodium Chloride 100 ml @ 100 mls/hr DAILY@1300 IVPB Last administered on 07/19/18at 12:57; Admin Dose 100 MLS/HR; Start 07/19/18 at 13:00; Stop 07/20/18 at 16:00 Methylprednisolone Sodium Succinate (Solu-Medrol) 20 mg ONCE ONCE IV ; Start 07/21/18 at 06:00; Stop 07/21/18 at 06:01 Diltiazem HCl (Cardizem Cd) 120 mg DAILY PO Last administered on 07/20/18 08:54; Admin Dose 120 MG; Start 07/19/18 at 09:44 OTILIA MARSHALL Jul 20, 2018 09:42
--- NOTE | 2018-07-20 11:08 | CONS ---
Consult Date/Type/Reason Admit Date/Time Jul 18, 2018 at 01:52 Initial Consult Date 07/18/18 Type of Consult Pulmonary Requesting Provider: GUILLE VICENTE MD Date/Time of Note DATE: 07/20/18 TIME: 11:07 Subjective Looks and feels much better. Objective Vital Signs Date Temp Pulse Resp B/P (MAP) Pulse Ox O2 O2 Flow FiO2 Time Delivery Rate 07/20/18 88 20 96 21 08:12 07/20/18 98.2 144/69 07:31 (94) 07/19/18 Room Air 16:00 07/18/18 2.0 14:25 Intake and Output 07/19/18 07/19/18 07/20/18 1515:00 23:00 07:00 IntakeIntake Total 550 ml 350 ml 350 ml BalanceBalance 550 ml 350 ml 350 ml Exam PHYSICAL EXAMINATION: GENERAL: Well-nourished well-developed [place] lady, appears comfortable at rest, in no acute distress. VITAL SIGNS: NECK: Supple. No JVD or lymphadenopathy. CARDIAC: S1, S2. No added sounds or murmurs. CHEST: Diminished air entry bilaterally with few rales. ABDOMEN: Soft, nontender. No guarding or rebound. EXTREMITIES: No cyanosis, clubbing, edema. NEUROLOGIC: Grossly intact. No focal deficits. Vent Setting Fraction of Inspired Oxygen pe: 21 Results/Medications Result Diagram: 07/20/18 0547 07/20/18 0547 Results 24 hrs Laboratory Tests Test 07/20/18 05:47 White Blood Count 18.2 #H Red Blood Count 4.56 Hemoglobin 13.4 Hematocrit 41.2 Mean Corpuscular Volume 90.4 Mean Corpuscular Hemoglobin 29.4 Mean Corpuscular Hemoglobin Concent 32.5 Red Cell Distribution Width 12.5 Platelet Count 370 # Mean Platelet Volume 10.5 H Immature Granulocytes % 0.800 H Neutrophils % 82.9 H Lymphocytes % 10.9 L Monocytes % 5.3 Eosinophils % 0.0 Basophils % 0.1 Nucleated Red Blood Cells % 0.0 Immature Granulocytes # 0.150 H Neutrophils # 15.0 H Lymphocytes # 2.0 Monocytes # 1.0 H Eosinophils # 0.0 Basophils # 0.0 Nucleated Red Blood Cells # 0.0 Erythrocyte Sedimentation Rate 95 H Sodium Level 143 Potassium Level 4.5 Chloride Level 103 Carbon Dioxide Level 28 Anion Gap 12 Blood Urea Nitrogen 37 H Creatinine 0.78 Est Glomerular Filtrat Rate mL/min Glucose Level 144 Calcium Level 10.1 Ferritin 186.0 Total Bilirubin 0.2 Direct Bilirubin 0.00 Indirect Bilirubin 0.2 Aspartate Amino Transf (AST/SGOT) 19 Alanine Aminotransferase (ALT/SGPT) 22 Alkaline Phosphatase 56 Total Protein 7.3 Albumin 3.9 Globulin 3.40 H Albumin/Globulin Ratio 1.14 Medications Current Medications Fluticasone/ Vilanterol (Breo Ellipta 100-25 Mcg Inh) 1 inh DAILY INH Last administered on 07/20/18 08:57; Admin Dose 1 INH; Start 07/18/18 at 09:00 Ipratropium [place] (Atrovent 0.02% (Neb)) 0.5 mg Q6HWA RESP THERAPY HHN Last administered on 07/20/18 08:11; Admin Dose 0.5 MG; Start 07/18/18 at 08:00 Levalbuterol (Xopenex Neb) 0.31 mg Q6H RESP THERAPY PRN HHN SHORTNESS OF BREATH; Start 07/18/18 at 06:00 Potassium Chloride (Micro-K) 8 meq DAILY PO Last administered on 07/20/18 08:53; Admin Dose 8 MEQ; Start 07/18/18 at 09:00 Pantoprazole (Protonix Tab) 40 mg DAILY@06 PO Last administered on 07/20/18 05:10; Admin Dose 40 MG; Start 07/18/18 at 06:00 Metoprolol Tartrate (Lopressor) 50 mg BID PO Last administered on 07/20/18 08:54; Admin Dose 50 MG; Start 07/18/18 at 21:00 Rivaroxaban (Xarelto) 20 mg WITH DINNER PO Last administered on 07/19/18 17:54; Admin Dose 20 MG; Start 07/18/18 at 18:00 Furosemide (Lasix) 20 mg DAILY PO Last administered on 07/20/18 08:55; Admin Dose 20 MG; Start 07/19/18 at 09:00 Ferric Sodium Gluconate Complex 125 mg/Sodium Chloride 100 ml @ 100 mls/hr DAILY@1300 IVPB Last administered on 07/19/18 12:57; Admin Dose 100 MLS/HR; Start 3/21/19 at 13:00; Stop 07/20/18 at 16:00 Methylprednisolone Sodium Succinate (Solu-Medrol) 20 mg ONCE ONCE IV ; Start 07/21/18 at 06:00; Stop 07/21/18 at 06:01 Diltiazem HCl (Cardizem Cd) 120 mg DAILY PO Last administered on 07/20/18at 08:54; Admin Dose 120 MG; Start 07/19/18 at 09:44 Assessment/Plan Hospital Course (Demo Recall) IMPRESSION 1. Likely acute systolic dysfunction with probable component of acute bronchitis clinically improved 2. ? Obstructive sleep apnea. 3. Atrial fibrillation, chronic 4. Probable component of acute bronchitis. 5. Leukocytosis likely secondary to steroids Recommendations 1. Continue gentle diuresis. 2. Steroid taper 3. Outpatient sleep study and PFTs 4. Anticoagulation for chronic atrial fibrillation. DC planning okay from pulmonary standpoint ZULAY WYATT MD, [facility] Jul 20, 2018 11:08
[2018-07-20] MEDS: SOD FERRIC GLUC COMPLX 125 MG in SOD CHLORIDE 0.9% 100 ML IVPB SCH (13:08)
[2018-07-20] MEDS: LEVALBUTEROL (NEB) 0.31 MG/3 ML AMP HHN PRN (15:18)
[2018-07-20] MEDS: RIVAROXABAN 20 MG TABLET PO SCH (17:46)
--- NOTE | 2018-07-20 20:54 | PN ---
Date/Time of Note Date/Time of Note DATE: 07/20/18 TIME: 20:50 Assessment/Plan VTE Prophylaxis Risk score (from Ns)>0 risk: 5 SCD applied (from Ns): Yes SCD contraindicated: low risk/ambulating Pharmacological prophylaxis: LMWH Lines/Catheters IV [facility] [place] line still needed: No Urinary Cath still in place: No Reason Cath still needed: urinary retention Assessment/Plan Assessment/Plan 1. Bronchial asthma exacerbation after upper respiratory infection, getting worse now with worsening of her shortness of breath and chest pain while coughing and moderate amount of yellowish sputum production; got worse cough got worse today, after being in close proximity to 2 dogs; 2. Hypertensive heart disease with systolic dysfunction; now improved with addition of diuretics.Continue gentle diuresis 3.hypoxemia-improving- Continue supplemental O2 as needed. 4. Obstructive sleep apnea. 5. Atrial fibrillation, with rapid ventricular rate currently on Xarelto .not known degenerative Cardizem before or digoxin .unknown compliance chronic. 6. Bronchitis 7. Bilateral chest pain most probably pleuritic 8. Very low iron level 9. Bilateral bunions 10. Osteoarthritis 11. Loss of taste 12. Weight loss due to not eating particularly last 2 weeks 13. Atherosclerotic cardiovascular disease status post angiography; no details are available for further clarification of coronary artery status. Result Diagram: 07/20/18 0547 07/20/18 0547 Results 24hrs Laboratory Tests Test 07/20/18 05:47 White Blood Count 18.2 #H Red Blood Count 4.56 Hemoglobin 13.4 Hematocrit 41.2 Mean Corpuscular Volume 90.4 Mean Corpuscular Hemoglobin 29.4 Mean Corpuscular Hemoglobin Concent 32.5 Red Cell Distribution Width 12.5 Platelet Count 370 # Mean Platelet Volume 10.5 H Immature Granulocytes % 0.800 H Neutrophils % 82.9 H Lymphocytes % 10.9 L Monocytes % 5.3 Eosinophils % 0.0 Basophils % 0.1 Nucleated Red Blood Cells % 0.0 Immature Granulocytes # 0.150 H Neutrophils # 15.0 H Lymphocytes # 2.0 Monocytes # 1.0 H Eosinophils # 0.0 Basophils # 0.0 Nucleated Red Blood Cells # 0.0 Erythrocyte Sedimentation Rate 95 H Sodium Level 143 Potassium Level 4.5 Chloride Level 103 Carbon Dioxide Level 28 Anion Gap 12 Blood Urea Nitrogen 37 H Creatinine 0.78 Est Glomerular Filtrat Rate mL/min Glucose Level 144 Calcium Level 10.1 Ferritin 186.0 Total Bilirubin 0.2 Direct Bilirubin 0.00 Indirect Bilirubin 0.2 Aspartate Amino Transf (AST/SGOT) 19 Alanine Aminotransferase (ALT/SGPT) 22 Alkaline Phosphatase 56 Total Protein 7.3 Albumin 3.9 Globulin 3.40 H Albumin/Globulin Ratio 1.14 Subjective 24 Hr Interval Summary Free Text/Dictation Worsening of her shortness of breath. Yellow sputum now become more clear but states with yellowish tint. Cough more frequent. According to the patient the next room from his bedroom there was a person with 2 dogs in close proximity to her when she tried to call and go out. Somehow she got scared and according to her after that her cough got worse. Discussed with RN to be careful that animals feel that the approach with a somatic patient particularly when there is acute exacerbation. Subjective hx not possible: pt critical status Constitutional: chills, diaphoresis, poor po, requiring O2; No no complaints, No improved, No disoriented, No febrile, No requiring IVF, No other Eyes: No no complaints, No pain, No discharge, No redness, No visual change, No other ENT: congestion; No no complaints, No bleeding, No pain, No discharge, No dysphagia, No sore throat, No other Respiratory: cough, pleuritic pain, shortness of breath, wheezing; No no complaints, No pain, No sputum, No other Cardiovascular: chest pain; No no complaints, No edema, No lightheadedness, No orthopenea, No palpitations, No paroxysmal nocturnal dyspnea, No other Gastrointestinal: constipation, decreased appetite; No no complaints, No pain, No blood, No diarrhea, No flatus, No nausea, No passing stool, No vomiting, No other Genitourinary: dysuria, flank pain; No no complaints, No bleeding, No discharge, No hematuria, No other Musculoskeletal: back pain, bone/joint pain, neck pain; No no complaints, No restricted range of motion, No swelling, No other Skin: No no complaints, No bruising, No erythema, No laceration, No pruritis, No rash, No skin lesions, No other Neurologic: headache; No no complaints, No confusion, No dizziness, No focal-weakness, No syncope, No seizure, No other Exam/Review of Systems Exam Vitals Vital Signs Date Temp Pulse Resp B/P (MAP) Pulse Ox O2 O2 Flow FiO2 Time Delivery Rate 07/20/18 92 20:00 07/20/18 20 93 21 19:45 07/20/18 97.9 149/67 19:33 (94) 07/19/18 Room Air 16:00 07/18/18 2.0 14:25 Intake and Output 07/19/18 07/19/18 07/20/18 1515:00 23:00 07:00 IntakeIntake Total 550 ml 350 ml 350 ml BalanceBalance 550 ml 350 ml 350 ml Constitutional: alert, oriented, well developed, distress, frail, obese; No non-verbal, No other Psych: anxiety; No no complaints, No nl mood/affect, No confusion, No depression, No suicidal, No other Head: normocephalic, atraumatic; No lacerations, No hematomas, No other Eyes: EOMI, PERRL; No nl conjunctiva, No nl lids, No nl sclera, No icteric, No fundi, disc, No other ENMT: nl nasal mucosa & septum; No nl external ears & nose, No nl lips & teeth, No mucosa pink and moist, No intubated, No tympanic membranes, No other Neck: jvd, bruits, nuchal rigidity; No supple, No non-tender, No masses, No thyromegaly, No other Respiratory: congested cough, diminished breath sounds, labored breathing, wheezing; No clear to auscultation, No normal air movement, No crackles/rales, No intercostal retraction, No respirations, No tactile fremitus, No other Cardiovascular: irregular rhythm; No regular rate and rhythm, No nl pulses, No bruits, No diastolic murmur, No edema, No gallop, No jugular venous distention (JVD), No murmurs/extra sounds, No rub, No systolic murmur, No S3, No S4, No other Gastrointestinal: soft, nl liver, spleen, bowel sounds; No non-tender, No ascites, No distended, No firm, No hepatomegaly, No mass, N o rebound or guarding, No splenomegaly, No surgical scars, No tender, No other Musculoskeletal: joint tenderness, muscle tone, muscle weakness; No nl extremities to inspection, No nl gait and stance, No range of motion, No spine non-tender, No swelling, No other Extremities: No normal pulses, No calf tenderness, No cyanosis, No clubbing, No edema, No pitting pedal edema, No palpable cord, No tenderness, No other Neurological: PRIOR AUTHORIZATION TECHNICIAN II-XII intact; No nl mental status, No nl speech, No nl strength, No confused, No DTR's symmetric, No focal weakness, No lethargic, No numbness, No reflexes, No unresponsive, No other Skin: nl turgor; No rash or lesions, No diaphoresis, No ecchymosis, No laceration, No pu ncture, No other Lymph: No nl lymph nodes, No enlarged, No nontender, No other Results Results 24hrs Laboratory Tests Test 07/20/18 05:47 White Blood Count 18.2 #H Red Blood Count 4.56 Hemoglobin 13.4 Hematocrit 41.2 Mean Corpuscular Volume 90.4 Mean Corpuscular Hemoglobin 29.4 Mean Corpuscular Hemoglobin Concent 32.5 Red Cell Distribution Width 12.5 Platelet Count 370 # Mean Platelet Volume 10.5 H Immature Granulocytes % 0.800 H Neutrophils % 82.9 H Lymphocytes % 10.9 L Monocytes % 5.3 Eosinophils % 0.0 Basophils % 0.1 Nucleated Red Blood Cells % 0.0 Immature Granulocytes # 0.150 H Neutrophils # 15.0 H Lymphocytes # 2.0 Monocytes # 1.0 H Eosinophils # 0.0 Basophils # 0.0 Nucleated Red Blood Cells # 0.0 Erythrocyte Sedimentation Rate 95 H Sodium Level 143 Potassium Level 4.5 Chloride Level 103 Carbon Dioxide Level 28 Anion Gap 12 Blood Urea Nitrogen 37 H Creatinine 0.78 Est Glomerular Filtrat Rate mL/min Glucose Level 144 Calcium Level 10.1 Ferritin 186.0 Total Bilirubin 0.2 Direct Bilirubin 0.00 Indirect Bilirubin 0.2 Aspartate Amino Transf (AST/SGOT) 19 Alanine Aminotransferase (ALT/SGPT) 22 Alkaline Phosphatase 56 Total Protein 7.3 Albumin 3.9 Globulin 3.40 H Albumin/Globulin Ratio 1.14 Medications Medication Current Medications Fluticasone/ Vilanterol (Breo Ellipta 100-25 Mcg Inh) 1 inh DAILY INH Last administered on 07/20/18at 08:57; Admin Dose 1 INH; Start 07/18/18 at 09:00 Ipratropium [place] (Atrovent 0.02% (Neb)) 0.5 mg Q6HWA RESP THERAPY HHN Last administered on 07/20/18 19:45; Admin Dose 0.5 MG; Start 07/18/18 at 08:00 Levalbuterol (Xopenex Neb) 0.31 mg Q6H RESP THERAPY PRN HHN SHORTNESS OF BREATH Last administered on 07/20/18 15:18; Admin Dose 0.31 MG; Start 07/18/18 at 06:00 Potassium Chloride (Micro-K) 8 meq DAILY PO Last administered on 07/20/18 08:53; Admin Dose 8 MEQ; Start 07/18/18 at 09:00 Pantoprazole (Protonix Tab) 40 mg DAILY@06 PO Last administered on 07/20/18 05:10; Admin Dose 40 MG; Start 07/18/18 at 06:00 Metoprolol Tartrate (Lopressor) 50 mg BID PO Last administered on 07/20/18 08:54; Admin Dose 50 MG; Start 07/18/18 at 21:00 Rivaroxaban (Xarelto) 20 mg WITH DINNER PO Last administered on 07/20/18 17:46; Admin Dose 20 MG; Start 07/18/18 at 18:00 Furosemide (Lasix) 20 mg DAILY PO Last administered on 07/20/18 08:55; Admin Dose 20 MG; Start 07/19/18 at 09:00 Methylprednisolone Sodium Succinate (Solu-Medrol) 20 mg ONCE ONCE IV ; Start 07/21/18 at 06:00; Stop 07/21/18 at 06:01 Diltiazem HCl (Cardizem Cd) 120 mg DAILY PO Last administered on 07/20/18 08:54; Admin Dose 120 MG; Start 07/19/18 at 09:44 GUILLE VICENTE MD Jul 20, 2018 20:54
[2018-07-20] MEDS ORDERED: METHYLPREDNISOLONE 125 MG INJ IV ONE (21:00)
--- NOTE | 2018-07-20 23:45 | CONS ---
Assessment/Plan Assessment/Plan Hospital Course (Demo Recall) IMPRESSION AND PLAN: leukocytosis WORSENED ON STEROIDS SMEAR- neg LOOKS REACTIVE MONITOR CHECK COUNT IN AM hypercoagulable state CONT Anticoagulation for chronic atrial fibrillation. HX Low iron level FERRITIN- N CHF with acute systolic dysfunction with subsequent transient hypoxemia, now improved with addition of diuretics. Obstructive sleep apnea. ATRIAL fibrillation with rapid ventricular rate HTN with chf Bronchial asthma Atherosclerotic cv disease JUVENTINO mild elevation of blood sugar. Consultation Date/Type/Reason Admit Date/Time Jul 20, 2018 at 14:59 Initial Consult Date 07/18/18 Type of Consult hemeon Requesting Provider: GUILLE VICENTE MD Date/Time of Note DATE: 07/20/18 TIME: 23:44 24 HR Interval Summary Free Text/Dictation all noted nad Exam/Review of Systems Exam Vitals Vital Signs Date Temp Pulse Resp B/P (MAP) Pulse Ox O2 O2 Flow FiO2 Time Delivery Rate 07/20/18 98.1 79 18 141/64 94 23:34 (89) 07/20/18 21 19:45 07/19/18 Room Air 16:00 07/18/18 2.0 14:25 Intake and Output 07/19/18 07/19/18 07/20/18 1414:59 22:59 06:59 IntakeIntake Total 550 ml 350 ml 350 ml BalanceBalance 550 ml 350 ml 350 ml Exam GENERAL: Morbidly obese English lady, appears comfortable at rest, in no acute distress. NECK: Supple. No JVD or lymphadenopathy. CARDIAC: S1, S2. No added sounds or murmurs. CHEST: Diminished air entry bilaterally with few rales. ABDOMEN: Soft, nontender. No guarding or rebound. EXTREMITIES: No cyanosis, clubbing, edema. NEUROLOGIC: Grossly intact. No focal deficits. Results Result Diagram: 07/20/18 0547 07/20/18 0547 Results 24hrs Laboratory Tests Test 07/20/18 05:47 White Blood Count 18.2 #H Red Blood Count 4.56 Hemoglobin 13.4 Hematocrit 41.2 Mean Corpuscular Volume 90.4 Mean Corpuscular Hemoglobin 29.4 Mean Corpuscular Hemoglobin Concent 32.5 Red Cell Distribution Width 12.5 Platelet Count 370 # Mean Platelet Volume 10.5 H Immature Granulocytes % 0.800 H Neutrophils % 82.9 H Lymphocytes % 10.9 L Monocytes % 5.3 Eosinophils % 0.0 Basophils % 0.1 Nucleated Red Blood Cells % 0.0 Immature Granulocytes # 0.150 H Neutrophils # 15.0 H Lymphocytes # 2.0 Monocytes # 1.0 H Eosinophils # 0.0 Basophils # 0.0 Nucleated Red Blood Cells # 0.0 Erythrocyte Sedimentation Rate 95 H Sodium Level 143 Potassium Level 4.5 Chloride Level 103 Carbon Dioxide Level 28 Anion Gap 12 Blood Urea Nitrogen 37 H Creatinine 0.78 Est Glomerular Filtrat Rate mL/min Glucose Level 144 Calcium Level 10.1 Ferritin 186.0 Total Bilirubin 0.2 Direct Bilirubin 0.00 Indirect Bilirubin 0.2 Aspartate Amino Transf (AST/SGOT) 19 Alanine Aminotransferase (ALT/SGPT) 22 Alkaline Phosphatase 56 Total Protein 7.3 Albumin 3.9 Globulin 3.40 H Albumin/Globulin Ratio 1.14 Medications Medication Current Medications Fluticasone/ Vilanterol (Breo Ellipta 100-25 Mcg Inh) 1 inh DAILY INH Last admi nistered on 07/20/18 08:57; Admin Dose 1 INH; Start 07/18/18 at 09:00 Ipratropium [place] (Atrovent 0.02% (Neb)) 0.5 mg Q6HWA RESP THERAPY HHN Last administered on 07/20/18 19:45; Admin Dose 0.5 MG; Start 07/18/18 at 08:00 Levalbuterol (Xopenex Neb) 0.31 mg Q6H RESP THERAPY PRN HHN SHORTNESS OF BREATH Last administered on 07/20/18 15:18; Admin Dose 0.31 MG; Start 07/18/18 at 06:00 Potassium Chloride (Micro-K) 8 meq DAILY PO Last administered on 07/20/18 08:53; Admin Dose 8 MEQ; Start 07/18/18 at 09:00 Pantoprazole (Protonix Tab) 40 mg DAILY@06 PO Last administered on 07/20/18 05:10; Admin Dose 40 MG; Start 07/18/18 at 06:00 Metoprolol Tartrate (Lopressor) 50 mg BID PO Last administered on 07/20/18 21:37; Admin Dose 50 MG; Start 07/18/18 at 21:00 Rivaroxaban (Xarelto) 20 mg WITH DINNER PO Last administered on 3/22/19at 17:46; Admin Dose 20 MG; Start 07/18/18 at 18:00 Furosemide (Lasix) 20 mg DAILY PO Last administered on 07/20/18at 08:55; Admin Dose 20 MG; Start 07/19/18 at 09:00 Diltiazem HCl (Cardizem Cd) 120 mg DAILY PO Last administered on 07/20/18at 08:54; Admin Dose 120 MG; Start 07/19/18 at 09:44 Methylprednisolone Sodium Succinate (Solu-Medrol) 60 mg ONCE ONCE IM ; Start 07/21/18 at 06:00; Stop 07/21/18 at 06:01 KATHLEEN KUMAR MD Jul 20, 2018 23:45
[2018-07-21] VITALS (12 sets, daily range): BP systolic 100–168; BP diastolic 50–69; PULSE 64–96; RESP 17–24
[2018-07-21] MEDS ORDERED: METHYLPREDNISOLONE 125 MG INJ IM ONE (06:00)
[2018-07-21] MEDS ORDERED: METHYLPREDNISOLONE 40 MG INJ IV ONE (06:00)
[2018-07-21] MEDS: PANTOPRAZOLE (EC) 40 MG TAB PO SCH (06:49)
[2018-07-21] MEDS ORDERED: METHYLPREDNISOLONE 125 MG INJ IV ONE (07:00)
[2018-07-21] MEDS: IPRATROPIUM (NEB) 0.5 MG/2.5 ML AMP HHN SCH ×3 (08:27→21:11)
[2018-07-21] MEDS: LEVALBUTEROL (NEB) 0.31 MG/3 ML AMP HHN PRN ×2 (08:27→14:42)
[2018-07-21] MEDS: DILTIAZEM (CD) 120 MG CAP PO SCH (09:30)
[2018-07-21] MEDS: FLUTICASONE/VILANTEROL 100-25 INH SCH (09:30)
[2018-07-21] MEDS: POTASSIUM CHLORIDE (SR) 8 MEQ CAP PO SCH (09:30)
--- NOTE | 2018-07-21 09:30 | PN ---
Date/Time of Note Date/Time of Note DATE: 07/21/18 TIME: 09:29 Assessment/Plan VTE Prophylaxis Risk score (from Ns)>0 risk: 5 SCD applied (from Ns): Yes Pharmacological prophylaxis: LMWH Lines/Catheters IV Catheter Type (from [facility] [place] line still needed: No Urinary Cath still in place: No Assessment/Plan Assessment/Plan 1. Bronchial asthma exacerbation after upper respiratory infection, getting worse now with worsening of her shortness of breath and chest pain while coughing now less intense compared with yesterday but still short of breath. 2. Hypertensive heart disease with systolic dysfunction; now improved with addition of diuretics.Continue gentle diuresis 3.hypoxemia-improving- Continue supplemental O2 as needed. 4. Obstructive sleep apnea. 5. Atrial fibrillation, with rapid ventricular rate currently on Xarelto .not known degenerative Cardizem before or digoxin .unknown compliance chronic. 6. Bronchitis 7. Bilateral chest pain most probably pleuritic 8. Very low iron level 9. Bilateral bunions 10. Osteoarthritis 11. Loss of taste 12. Weight loss due to not eating particularly last 2 weeks 13. Atherosclerotic cardiovascular disease status post angiography; no details are available for further clarification of coronary artery status. Result Diagram: 07/21/18 0529 07/20/18 0547 Results 24hrs Laboratory Tests Test 07/21/18 05:29 White Blood Count 13.2 #H Red Blood Count 4.47 Hemoglobin 13.1 Hematocrit 40.5 Mean Corpuscular Volume 90.6 Mean Corpuscular Hemoglobin 29.3 Mean Corpuscular Hemoglobin Concent 32.3 Red Cell Distribution Width 12.5 Platelet Count 375 Mean Platelet Volume 10.8 H Immature Granulocytes % 1.000 H Neutrophils % 86.9 H Lymphocytes % 10.7 L Monocytes % 1.2 Eosinophils % 0.0 Basophils % 0.2 Nucleated Red Blood Cells % 0.0 Immature Granulocytes # 0.130 H Neutrophils # 11.4 H Lymphocytes # 1.4 Monocytes # 0.2 L Eosinophils # 0.0 Basophils # 0.0 Nucleated Red Blood Cells # 0.0 Subjective 24 Hr Interval Summary Free Text/Dictation Shortness of breath improved comparing with yesterday although the cough is persistent causing severe headache and bilateral hypochondrial area pain. Sputum is difficult to expectorate agitation more whitish coming out with great difficulty. Able to get up and walk but is wheezing with distantly audible sounds. Subjective hx not possible: other (Still wheezing a week but better compared to yesterday.) Constitutional: No no complaints, No improved, No chills, No diaphoresis, No disoriented, No febrile, No poor po, No requiring IVF, No requiring O2, No other Eyes: redness; No no complaints, No pain, No discharge, No visual change, No other ENT: sore throat; No no complaints, No bleeding, No pain, No congestion, No discharge, No dysphagia, No other Respiratory: cough, pleuritic pain, wheezing; No no complaints, No pain, No shortness of breath, No sputum, No other Cardiovascular: chest pain, lightheadedness, orthopenea, palpitations; No no complaints, No edema, No paroxysmal nocturnal dyspnea, No other Gastrointestinal: constipation, decreased appetite; No no complaints, No pain, No blood, No diarrhea, No flatus, No nausea, No passing stool, No vomiting, No other Genitourinary: dysuria; No no complaints, No bleeding, No discharge, No flank pain, No hematuria, No other Musculoskeletal: back pain, bone/joint pain, neck pain Skin: pruritis, rash; No no complaints, No bruising, No erythema, No laceration, No skin lesions, No other Neurologic: dizziness, headache; No no complaints, No confusion, No focal-weakness, No syncope, No seizure, No other Endocrine: dry skin; No no complaints, No polyuria, No polydypsia, No temp intolerance, No other Lymphatic: No no complaints, No adenopathy, No tender nodes, No lymphadema, No other Psychological: anxiety, confusion; No no complaints, No nl mood/affect, No depression, No suicidal, No other Exam/Review of Systems Exam Vitals Vital Signs Date Temp Pulse Resp B/P (MAP) Pulse Ox O2 O2 Flow FiO2 Time Delivery Rate 07/21/18 104 18 94 21 08:27 07/21/18 97.7 130/58 Room Air 07:31 (82) 07/18/18 2.0 14:25 Intake and Output 07/20/18 07/20/18 07/21/18 1414:59 22:59 06:59 IntakeIntake Total 1100 ml 750 ml BalanceBalance 1100 ml 750 ml Constitutional: alert, oriented, well developed, distress, frail, obese; No non-verbal, No other Psych: anxiety, depression; No no complaints, No nl mood/affect, No confusion, No suicidal, No other Head: normocephalic, atraumatic; No lacerations, No hematomas, No other Eyes: EOMI, nl lids, PERRL; No nl conjunctiva, No nl sclera, No icteric, No fundi, disc, No other ENMT: nl external ears & nose, tympanic membranes; No nl lips & teeth, No nl nasal mucosa & septum, No mucosa pink and moist, No intubated, No other Neck: bruits, nuchal rigidity; No supple, No non-tender, No jvd, No masses, No thyromegaly, No other Respiratory: diminished breath sounds, wheezing Cardiovascular: nl pulses, irregular rhythm, murmurs/extra sounds, systolic murmur; No regular rate and rhythm, No bruits, No diastolic murmur, No edema, No gallop, No jugular venous distention (JVD), No rub, No S3, No S4, No other Gastrointestinal: soft, nl liver, spleen, bowel sounds, distended; No non-tender, No ascites, No firm, No hepatomegaly, No mass, No rebound or guarding, No splenomegaly, No surgical scars, No tender, No other Genitourinary - Female: nl adnexae, nl external genitalia; No CMT, No CVA tenderness, No uterus, No other Musculoskeletal: joint tenderness, muscle tone, muscle weakness Extremities: normal pulses; No calf tenderness, No cyanosis, No clubbing, No edema, No pitting pedal edema, No palpable cord, No tenderness, No other Neurological: NUT GRINDER II-XII intact, nl mental status, numbness; No nl speech, No nl strength, No confused, No DTR's symmetric, No focal weakness, No lethargic, No reflexes, No unresponsive, No other Skin: nl turgor; No rash or lesions, No diaphoresis, No ecchymosis, No laceration, No puncture, No other Lymph: nl lymph nodes; No enlarged, No nontender, No other Results Results 24hrs Laboratory Tests Test 07/21/18 05:29 White Blood Count 13.2 #H Red Blood Count 4.47 Hemoglobin 13.1 Hematocrit 40.5 Mean Corpuscular Volume 90.6 Mean Corpuscular Hemoglobin 29.3 Mean Corpuscular Hemoglobin Concent 32.3 Red Cell Distribution Width 12.5 Platelet Count 375 Mean Platelet Volume 10.8 H Immature Granulocytes % 1.000 H Neutrophils % 86.9 H Lymphocytes % 10.7 L Monocytes % 1.2 Eosinophils % 0.0 Basophils % 0.2 Nucleated Red Blood Cells % 0.0 Immature Granulocytes # 0.130 H Neutrophils # 11.4 H Lymphocytes # 1.4 Monocytes # 0.2 L Eosinophils # 0.0 Basophils # 0.0 Nucleated Red Blood Cells # 0.0 Medications Medication Current Medications Fluticasone/ Vilanterol (Breo Ellipta 100-25 Mcg Inh) 1 inh DAILY INH Last administered on 07/20/18 08:57; Admin Dose 1 INH; Start 07/18/18 at 09:00 Ipratropium [place] (Atrovent 0.02% (Neb)) 0.5 mg Q6HWA RESP THERAPY HHN Last administered on 07/21/18 08:27; Admin Dose 0.5 MG; Start 07/18/18 at 08:00 Levalbuterol (Xopenex Neb) 0.31 mg Q6H RESP THERAPY PRN HHN SHORTNESS OF BREATH Last administered on 07/21/18 08:27; Admin Dose 0.31 MG; Start 07/18/18 at 06:00 Potassium Chloride (Micro-K) 8 meq DAILY PO Last administered on 07/20/18 08:53; Admin Dose 8 MEQ; Start 07/18/18 at 09:00 Pantoprazole (Protonix Tab) 40 mg DAILY@06 PO Last administered on 07/21/18 06:49; Admin Dose 40 MG; Start 07/18/18 at 06:00 Metoprolol Tartrate (Lopressor) 50 mg BID PO Last administered on 07/20/18 2 1:37; Admin Dose 50 MG; Start 07/18/18 at 21:00 Rivaroxaban (Xarelto) 20 mg WITH DINNER PO Last administered on 07/20/18 17:46; Admin Dose 20 MG; Start 07/18/18 at 18:00 Furosemide (Lasix) 20 mg DAILY PO Last administered on 07/20/18 08:55; Admin Dose 20 MG; Start 07/19/18 at 09:00 Diltiazem HCl (Cardizem Cd) 120 mg DAILY PO Last administered on 07/20/18at 08:54; Admin Dose 120 MG; Start 07/19/18 at 09:44 GUILLE VICENTE MD Jul 21, 2018 09:30
[2018-07-21] MEDS: METOPROLOL 50 MG TAB PO SCH ×2 (09:31→19:41)
[2018-07-21] MEDS: FUROSEMIDE 20 MG TAB PO SCH (09:31)
[2018-07-21] MEDS ORDERED: VITAMIN A & D 5 GM OINT PACKET TOP ONE (15:47)
--- NOTE | 2018-07-21 16:16 | CONS ---
Consult Date/Type/Reason Admit Date/Time Jul 20, 2018 at 14:59 Initial Consult Date 07/18/18 Type of Consultation: Pulm Requesting Provider: GUILLE VICENTE MD Date/Time of Note DATE: 07/21/18 TIME: 16:13 Subjective No events. Breathing on room air. Objective Vitals Vital Signs Date Temp Pulse Resp B/P (MAP) Pulse Ox O2 O2 Flow FiO2 Time Delivery Rate 07/21/18 76 16:06 07/21/18 97.9 24 145/67 95 Room Air 15:03 (93) 07/21/18 21 14:42 07/18/18 2.0 14:25 Intake and Output 07/20/18 07/20/18 07/21/18 1414:59 22:59 06:59 IntakeIntake Total 1100 ml 750 ml BalanceBalance 1100 ml 750 ml Exam HEENT: Neck supple; no JVD; no LAD CVS: iireg, S1 and S2 CHEST: Bibasilar rales ABD: Soft, NT, + BS EXT: No c/c; + edema Results/Medications Result Diagram: 07/21/18 0529 07/20/18 0547 Results 24 hrs Laboratory Tests Test 07/21/18 05:29 White Blood Count 13.2 #H Red Blood Count 4.47 Hemoglobin 13.1 Hematocrit 40.5 Mean Corpuscular Volume 90.6 Mean Corpuscular Hemoglobin 29.3 Mean Corpuscular Hemoglobin Concent 32.3 Red Cell Distribution Width 12.5 Platelet Count 375 Mean Platelet Volume 10.8 H Immature Granulocytes % 1.000 H Neutrophils % 86.9 H Lymphocytes % 10.7 L Monocytes % 1.2 Eosinophils % 0.0 Basophils % 0.2 Nucleated Red Blood Cells % 0.0 Immature Granulocytes # 0.130 H Neutrophils # 11.4 H Lymphocytes # 1.4 Monocytes # 0.2 L Eosinophils # 0.0 Basophils # 0.0 Nucleated Red Blood Cells # 0.0 Home Meds Reported Medications Isosorbide Mononitrate* (Isosorbide Mononitrate*) 30 Mg Tab.er.24h, 30 MG PO DAILY, TAB 07/18/18 Levalbuterol* (Xopenex* HFA) 15 Gm Inha, 2 PUFFS INH Q4H PRN for WHEEZING AND SOB, INHALER 07/18/18 Furosemide* (Furosemide*) 20 Mg Tablet, 20 MG PO DAILY, #60 TAB 07/18/18 Ipratropium [place]* (Atrovent HFA*) 12.9 Gm Aer.w.adap, 2 PUFF INHALATION Q4H for SHORTNESS OF BREATH, #1 INHALER 07/18/18 Methotrexate* (Methotrexate*) 2.5 Mg Tab, 20 MG PO ONCE A WEEK, TAB TAKE 8 TABLETS BY MOUTH EVERY Saturdays07/18/18 Fluticasone/Vilanterol (Breo Ellipta 200-25 Mcg INH) 1 Each Blst.w.dev, 1 PUFF INHALATION DAILY, #1 INHALER 07/18/18 Ramipril (Ramipril) 5 Mg Capsule, 5 MG PO DAILY, CAP 07/18/18 Rivaroxaban* (Xarelto*) 10 Mg Tablet, 10 MG PO DAILY, TAB 07/18/18 Metoprolol Tartrate* (Lopressor*) 25 Mg Tab, 37.5 MG PO BID, #60 TAB 07/18/18 Aspirin* (Aspirin* EC) 81 Mg Tablet.dr, 81 MG PO DAILY, TAB 07/18/18 Levofloxacin* (Levofloxacin*) 500 Mg Tablet, 500 MG PO DAILY, TAB 07/18/18 Medications Current Medications Fluticasone/ Vilanterol (Breo Ellipta 100-25 Mcg Inh) 1 inh DAILY INH Last administered on 07/21/18at 09:30; Admin Dose 1 INH; Start 07/18/18 at 09:00 Ipratropium [place] (Atrovent 0.02% (Neb)) 0.5 mg Q6HWA RESP THERAPY HHN Last administered on 07/21/18at 14:42; Admin Dose 0.5 MG; Start 07/18/18 at 08:00 Levalbuterol (Xopenex Neb) 0.31 mg Q6H RESP THERAPY PRN HHN SHORTNESS OF BREATH Last administered on 07/21/18at 14:42; Admin Dose 0.31 MG; Start 07/18/18 at 06:00 Potassium Chloride (Micro-K) 8 meq DAILY PO Last administered on 07/21/18at 0 9:30; Admin Dose 8 MEQ; Start 07/18/18 at 09:00 Pantoprazole (Protonix Tab) 40 mg DAILY@06 PO Last administered on 07/21/18 06:49; Admin Dose 40 MG; Start 07/18/18 at 06:00 Metoprolol Tartrate (Lopressor) 50 mg BID PO Last administered on 07/21/18 09:31; Admin Dose 50 MG; Start 07/18/18 at 21:00 Rivaroxaban (Xarelto) 20 mg WITH DINNER PO Last administered on 07/20/18 17:46; Admin Dose 20 MG; Start 07/18/18 at 18:00 Furosemide (Lasix) 20 mg DAILY PO Last administered on 07/21/18 09:31; Admin Dose 20 MG; Start 07/19/18 at 09:00 Diltiazem HCl (Cardizem Cd) 120 mg DAILY PO Last administered on 07/21/18 09:30; Admin Dose 120 MG; Start 07/19/18 at 09:44 Assessment/Plan Assessment/Plan (Daily) IMP: 1. Likely acute systolic dysfunction with probable component of acute bronchitis clinically improved 2. Probable Obstructive sleep apnea. 3. Atrial fibrillation, chronic 4. Probable component of acute bronchitis. 5. Leukocytosis likely secondary to steroids RECS: 1. Continue gentle diuresis. 2. Steroid taper--> off 3. Outpatient sleep study and PFTs DC planning okay from pulmonary standpoint KENIA CEDILLO MD Jul 21, 2018 16:16
[2018-07-21] MEDS: RIVAROXABAN 20 MG TABLET PO SCH (17:17)
--- NOTE | 2018-07-21 18:56 | CONS ---
Assessment/Plan Assessment/Plan Hospital Course (Demo Recall) IMPRESSION AND PLAN: leukocytosis WORSENED ON STEROIDS SMEAR- neg LOOKS REACTIVE MONITOR CHECK COUNT IN AM hypercoagulable state CONT Anticoagulation for chronic atrial fibrillation. HX Low iron level FERRITIN- N CHF with acute systolic dysfunction with subsequent transient hypoxemia, now improved with addition of diuretics. Obstructive sleep apnea. ATRIAL fibrillation with rapid ventricular rate HTN with chf Bronchial asthma Atherosclerotic cv disease JUVENTINO mild elevation of blood sugar. Consultation Date/Type/Reason Admit Date/Time Jul 20, 2018 at 14:59 Initial Consult Date 07/18/18 Type of Consult hemeon Requesting Provider: GUILLE VICENTE MD Date/Time of Note DATE: 07/21/18 TIME: 18:55 24 HR Interval Summary Free Text/Dictation all noted NAD Exam/Review of Systems Exam Vitals Vital Signs Date Temp Pulse Resp B/P (MAP) Pulse Ox O2 O2 Flow FiO2 Time Delivery Rate 07/21/18 76 16:06 07/21/18 97.9 24 145/67 95 Room Air 15:03 (93) 07/21/18 21 14:42 07/18/18 2.0 14:25 Intake and Output 07/20/18 07/20/18 07/21/18 1515:00 23:00 07:00 IntakeIntake Total 1100 ml 750 ml BalanceBalance 1100 ml 750 ml Exam GENERAL: Morbidly obese [place] lady, appears comfortable at rest, in no acute distress. NECK: Supple. No JVD or lymphadenopathy. CARDIAC: S1, S2. No added sounds or murmurs. CHEST: Diminished air entry bilaterally with few rales. ABDOMEN: Soft, nontender. No guarding or rebound. EXTREMITIES: No cyanosis, clubbing, + edema. NEUROLOGIC: Grossly intact. No focal deficits. Results Result Diagram: 07/21/18 0529 07/20/18 0547 Results 24hrs Laboratory Tests Test 07/21/18 05:29 White Blood Count 13.2 #H Red Blood Count 4.47 Hemoglobin 13.1 Hematocrit 40.5 Mean Corpuscular Volume 90.6 Mean Corpuscular Hemoglobin 29.3 Mean Corpuscular Hemoglobin Concent 32.3 Red Cell Distribution Width 12.5 Platelet Count 375 Mean Platelet Volume 10.8 H Immature Granulocytes % 1.000 H Neutrophils % 86.9 H Lymphocytes % 10.7 L Monocytes % 1.2 Eosinophils % 0.0 Basophils % 0.2 Nucleated Red Blood Cells % 0.0 Immature Granulocytes # 0.130 H Neutrophils # 11.4 H Lymphocytes # 1.4 Monocytes # 0.2 L Eosinophils # 0.0 Basophils # 0.0 Nucleated Red Blood Cells # 0.0 Medications Medication Current Medications Fluticasone/ Vilanterol (Breo Ellipta 100-25 Mcg Inh) 1 inh DAILY INH Last administered on 07/21/18 09:30; Admin Dose 1 INH; Start 07/18/18 at 09:00 Ipratropium [place] (Atrovent 0.02% (Neb)) 0.5 mg Q6HWA RESP THERAPY HHN Last administered on 07/21/18 14:42; Admin Dose 0.5 MG; Start 07/18/18 at 08:00 Levalbuterol (Xopenex Neb) 0.31 mg Q6H RESP THERAPY PRN HHN SHORTNESS OF BREATH Last administered on 07/21/18 14:42; Admin Dose 0.31 MG; Start 07/18/18 at 06:00 Potassium Chloride (Micro-K) 8 meq DAILY PO Last administered on 07/21/18 09:30; Admin Dose 8 MEQ; Start 07/18/18 at 09:00 Pantoprazole (Protonix Tab) 40 mg DAILY@06 PO Last administered on 07/21/18 06:49; Admin Dose 40 MG; Start 07/18/18 at 06:00 Metoprolol Tartrate (Lopressor) 50 mg BID PO Last administered on 07/21/18 09:31; Admin Dose 50 MG; Start 07/18/18 at 21:00 Rivaroxaban (Xarelto) 20 mg WITH DINNER PO Last administered on 07/21/18 17:17; Admin Dose 20 MG; Start 07/18/18 at 18:00 Furosemide (Lasix) 20 mg DAILY PO Last administered on 07/21/18 09:31; Admin Dose 20 MG; Start 07/19/18 at 09:00 Diltiazem HCl (Cardizem Cd) 120 mg DAILY PO Last administered on 07/21/18 09:30; Admin Dose 120 MG; Start 07/19/18 at 09:44 KATHLEEN KUMAR MD Jul 21, 2018 18:55
[2018-07-22] VITALS (7 sets, daily range): BP systolic 127–148; BP diastolic 57–87; PULSE 73–87; RESP 17–18
[2018-07-22] MEDS: PANTOPRAZOLE (EC) 40 MG TAB PO SCH (05:47)
[2018-07-22] MEDS: IPRATROPIUM (NEB) 0.5 MG/2.5 ML AMP HHN SCH (08:19)
--- NOTE | 2018-07-22 09:01 | CONS ---
Assessment/Plan Assessment/Plan Hospital Course (Demo Recall) Acute respiratory failure: Likely multifactorial including CHF but also with ronchi/wheezing concerning for asthma exacerbation in setting of recent likely viral URI. Now resolved Acute on chronic diastolic CHF: EF preserved. Mild-mod AR. possibly due to afib with RVR and viral illness. Euvolemic on exam Chronic afib with RVR: On Xarelto as outpt but incorrect dose. Should be 20mg daily as normal renal function. Rates controlled Reported CAD: no obstructive disease on cardiac cath 6 months ago per pt/family HTN Asthma with likely exacerbation -ok for d/c from my perspective -please d/c with below cardiac meds -diltiazem 120mg daily -metoprolol 50mg BID -lasix 20mg PO daily -Xarelto 20mg Consultation Date/Type/Reason Admit Date/Time Jul 20, 2018 at 14:59 Initial Consult Date 07/18/18 Type of Consult Cardiology Requesting Provider: GUILLE VICENTE MD Date/Time of Note DATE: 07/22/18 TIME: 08:59 24 HR Interval Summary Free Text/Dictation Late note for 07/21 Hr controlled. Feels well. No complaints. Plan for d/c in am Exam/Review of Systems Exam Vitals Vital Signs Date Temp Pulse Resp B/P (MAP) Pulse Ox O2 O2 Flow FiO2 Time Delivery Rate 07/22/18 96 21 08:23 07/22/18 84 20 08:22 07/22/18 98.1 148/87 07:33 (107) 07/21/18 Room Air 15:03 07/18/18 2.0 14:25 Intake and Output 07/21/18 07/21/18 07/22/18 1515:00 23:00 07:00 IntakeIntake Total 840 ml 500 ml BalanceBalance 840 ml 500 ml Constitutional: alert, oriented Psych: no complaints, nl mood/affect Head: normocephalic, atraumatic Neck: No jvd Respiratory: No clear to auscultation (left base mild crackles ) Cardiovascular: regular rate and rhythm, systolic murmur (2/6 REGGIE); No edema Gastrointestinal: soft, non-tender; No distended Neurological: nl mental status, nl speech Results Result Diagram: 07/22/18 0513 07/20/18 0547 Results 24hrs Laboratory Tests Test 07/22/18 05:13 White Blood Count 15.5 H Red Blood Count 4.55 Hemoglobin 13.3 Hematocrit 41.1 Mean Corpuscular Volume 90.3 Mean Corpuscular Hemoglobin 29.2 Mean Corpuscular Hemoglobin Concent 32.4 Red Cell Distribution Width 12.6 Platelet Count 397 Mean Platelet Volume 10.1 Immature Granulocytes % 1.300 H Neutrophils % 80.0 H Lymphocytes % 12.4 L Monocytes % 6.2 Eosinophils % 0.0 Basophils % 0.1 Nucleated Red Blood Cells % 0.0 Immature Granulocytes # 0.200 H Neutrophils # 12.4 H Lymphocytes # 1.9 Monocytes # 1.0 H Eosinophils # 0.0 Basophils # 0.0 Nucleated Red Blood Cells # 0.0 Medications Medication Current Medications Fluticasone/ Vilanterol (Breo Ellipta 100-25 Mcg Inh) 1 inh DAILY INH Last administered on 07/21/18 09:30; Admin Dose 1 INH; Start 07/18/18 at 09:00 Ipratropium [place] (Atrovent 0.02% (Neb)) 0.5 mg Q6HWA RESP THERAPY HHN Last administered on 07/22/18 08:19; Admin Dose 0.5 MG; Start 07/18/18 at 08:00 Levalbuterol (Xopenex Neb) 0.31 mg Q6H RESP THERAPY PRN HHN SHORTNESS OF BREATH Last administered on 07/21/18 14:42; Admin Dose 0.31 MG; Start 07/18/18 at 06:00 Potassium Chloride (Micro-K) 8 meq DAILY PO Last administered on 07/21/18 09:30; Admin Dose 8 MEQ; Start 07/18/18 at 09:00 Pantoprazole (Protonix Tab) 40 mg DAILY@06 PO Last administered on 07/22/18 05:47; Admin Dose 40 MG; Start 07/18/18 at 06:00 Metoprolol Tartrate (Lopressor) 50 mg BID PO Last administered on 07/21/18 19:41; Admin Dose 50 MG; Start 07/18/18 at 21:00 Rivaroxaban (Xarelto) 20 mg WITH DINNER PO Last administered on 07/21/18 17:17; Admin Dose 20 MG; Start 07/18/18 at 18:00 Furosemide (Lasix) 20 mg DAILY PO Last administered on 07/21/18at 09:31; Admin Dose 20 MG; Start 07/19/18 at 09:00 Diltiazem HCl (Cardizem Cd) 120 mg DAILY PO Last administered on 07/21/18at 09:30; Admin Dose 120 MG; Start 07/19/18 at 09:44 OTILIA MARSHALL Jul 22, 2018 09:01
[2018-07-22] MEDS: POTASSIUM CHLORIDE (SR) 8 MEQ CAP PO SCH (09:04)
[2018-07-22] MEDS: DILTIAZEM (CD) 120 MG CAP PO SCH (09:05)
[2018-07-22] MEDS: METOPROLOL 50 MG TAB PO SCH (09:05)
[2018-07-22] MEDS: FUROSEMIDE 20 MG TAB PO SCH (09:05)
[2018-07-22] MEDS: FLUTICASONE/VILANTEROL 100-25 INH SCH (09:06)
--- NOTE | 2018-07-22 09:29 | PDOCDIS ---
Discharge Instructions DIAGNOSIS Discharge Diagnosis 1. Bronchial asthma exacerbation after upper respiratory infection, now with improved breath and chest pain while coughing and moderate amount of sputum production; 2. Hypertensive heart disease with systolic dysfunction; now improved with addition of diuretics.Continue gentle diuresis 3.hypoxemia-improving- Continue supplemental O2 as needed. 4. Obstructive sleep apnea. 5. Atrial fibrillation, with rapid ventricular rate currently on Xarelto .not known degenerative Cardizem before or digoxin .unknown compliance chronic. 6. Bronchitis 7. Bilateral chest pain most probably pleuritic 8. Very low iron level 9. Bilateral bunions 10. Osteoarthritis 11. Loss of taste 12. Weight loss due to not eating particularly last 2 weeks 13. Atherosclerotic cardiovascular disease status post angiography; no details are available for further clarification of coronary artery status. CONDITION [id number] Patient Condition: [id number] Guarded HOME CARE INSTRUCTIONS: [id number] Diet Instructions: [id number] Reduced Sodium ACTIVITY: [id number] Activity Restrictions: [id number] Slowly Increase Activity [id number] Bathing Restrictions: [id number] Shower FOLLOW UP/APPOINTMENTS Follow-up Plan In 3-4 days to primary care physician In [address] Campbell SCHOOL/WORK RELEASE May return to School/Work with: None. GUILLE VICENTE MD Jul 22, 2018 09:29
--- NOTE | 2018-07-22 09:35 | DS ---
Date/Time of Note Date/Time of Note DATE: 07/22/18 TIME: 09:32 Discharge Summary Admission/Discharge Info Admit Date/Time Jul 20, 2018 at 14:59 Discharge Date/Time July 22, 2018 11 AM. Discharge Diagnosis 1. Bronchial asthma exacerbation after upper respiratory infection, now with improved breath and chest pain while coughing and moderate amount of sputum production; 2. Hypertensive heart disease with systolic dysfunction; now improved with addition of diuretics.Continue gentle diuresis 3.hypoxemia-improving- Continue supplemental O2 as needed. 4. Obstructive sleep apnea. 5. Atrial fibrillation, with rapid ventricular rate currently on Xarelto .not known degenerative Cardizem before or digoxin .unknown compliance chronic. 6. Bronchitis 7. Bilateral chest pain most probably pleuritic 8. Very low iron level 9. Bilateral bunions 10. Osteoarthritis 11. Loss of taste 12. Weight loss due to not eating particularly last 2 weeks 13. Atherosclerotic cardiovascular disease status post angiography; no details are available for further clarification of coronary artery status. Patient Condition: Guarded Hx of Present Illness History was taken from patient and by conversation with ER physician and RN she was doing fine until about 10 days ago. When she developed symptoms consistent with upper respiratory infection. She had a history of coronary artery disease status post angiography according to patient with no significant coronary artery narrowing ,HTN, asthma, who presented with dyspnea, cough, palpitations. She notes that about 10 days ago she developed a cough, sore throat, fevers/chills. She continued to have a dry cough and dyspnea and was given a course of antibiotics. She does not remember remember what kind of antibiotics were given .she was not feeling well and had continued dyspnea so she decided to come in for evaluation. The day prior to admission she become more severe shortness of breath and started wheezing but she was coughing she was having a severe pain in bilateral chest areas; in the emergency room she was given IV lasix and IV diltiazem after which her heart rate came down but shortness of breath and cough while continuing. She feels much better but still has a cough. No chest pain now. But when she coughs the pain in bilateral hypochondrial area and severe diarrhea is very severe.. Hospital Course The patient received steroid therapy including methylprednisolone prior to admission along with antibiotic treatment. Taking into account that fact patient was given 60 mg of sodium Medrol which did not touch to improve the her asthmatic start. 2 days ago the dose was increased to 120 mg with significant improvement of her condition. We will taper down starting from 30 mg prednisone for 3 days 20 mg for 3 days 10 mg for 3 days and stop. Patient was recommended to continue to measure blood pressure and a heart rate to titrate antihypertensive medications. Patient will be seen by primary care physician in 3 days and if not in a as needed basis to see me in office. Overall condition improved. Preventing exacerbating measures will be considered and had a lengthy discussion with the daughter of patient herself to remove the dog from home along with sprays orders dust as much as possible not to trigger the asthma exacerbation. Home Meds Reported Medications Isosorbide Mononitrate* (Isosorbide Mononitrate*) 30 Mg Tab.er.24h, 30 MG PO DAILY, TAB 07/18/18 Levalbuterol* (Xopenex* HFA) 15 Gm Inha, 2 PUFFS INH Q4H PRN for WHEEZING AND SOB, INHALER 07/18/18 Furosemide* (Furosemide*) 20 Mg Tablet, 20 MG PO DAILY, #60 TAB 07/18/18 Ipratropium [place]* (Atrovent HFA*) 12.9 Gm Aer.w.adap, 2 PUFF INHALATION Q4H for SHORTNESS OF BREATH, #1 INHALER 07/18/18 Methotrexate* (Methotrexate*) 2.5 Mg Tab, 20 MG PO ONCE A WEEK, TAB TAKE 8 TABLETS BY MOUTH EVERY Saturdays07/18/18 Fluticasone/Vilanterol (Breo Ellipta 200-25 Mcg INH) 1 Each Blst.w.dev, 1 PUFF INHALATION DAILY, #1 INHALER 07/18/18 Ramipril (Ramipril) 5 Mg Capsule, 5 MG PO DAILY, CAP 07/18/18 Rivaroxaban* (Xarelto*) 10 Mg Tablet, 10 MG PO DAILY, TAB 07/18/18 Metoprolol Tartrate* (Lopressor*) 25 Mg Tab, 37.5 MG PO BID, #60 TAB 07/18/18 Aspirin* (Aspirin* EC) 81 Mg Tablet.dr, 81 MG PO DAILY, TAB 07/18/18 Levofloxacin* (Levofloxacin*) 500 Mg Tablet, 500 MG PO DAILY, TAB 07/18/18 Follow-up Plan In 3-4 days to primary care physician In [address] Campbell Primary Care Provider Francisco Vicente MD Time spent on discharge: > 30 minutes Pending Labs Laboratory Tests Test 07/22/18 05:13 White Blood Count 15.5 10^3/ul (4.8-10.8) Red Blood Count 4.55 10^6/ul (4.20-5.40) Hemoglobin 13.3 g/dl (12.0-16.0) Hematocrit 41.1 % (37.0-47.0) Mean Corpuscular Volume 90.3 fl (82.0-101.0) Mean Corpuscular Hemoglobin 29.2 pg (29.0-33.0) Mean Corpuscular Hemoglobin Concent 32.4 g/dl (32.0-37.0) Red Cell Distribution Width 12.6 % (11.5-14.5) Platelet Count 397 10^3/UL (140-415) Mean Platelet Volume 10.1 fl (7.4-10.4) Immature Granulocytes % 1.300 % (0.001-0.429) Neutrophils % 80.0 % (39.0-77.0) Lymphocytes % 12.4 % (15.0-51.0) Monocytes % 6.2 % (0.0-11.0) Eosinophils % 0.0 % (0.0-7.0) Basophils % 0.1 % (0.0-2.0) Nucleated Red Blood Cells % 0.0 /100WBC (0.0-0.0) Immature Granulocytes # 0.200 10^3/ul (0.0-0.031) Neutrophils # 12.4 10^3/ul (1.6-7.5) Lymphocytes # 1.9 10^3/ul (0.8-2.9) Monocytes # 1.0 10^3/ul (0.3-0.9) Eosinophils # 0.0 10^3/ul (0.0-0.5) Basophils # 0.0 10^3/ul (0.0-0.1) Nucleated Red Blood Cells # 0.0 10^3/ul (0.0-0.0) FRANCISCO VIECNTE MD Jul 22, 2018 09:35
--- NOTE | 2018-07-22 09:43 | CONS ---
Assessment/Plan Assessment/Plan Hospital Course (Demo Recall) Acute respiratory failure: Likely multifactorial including CHF but also with ronchi/wheezing concerning for asthma exacerbation in setting of recent likely viral URI. Now resolved Acute on chronic diastolic CHF: EF preserved. Mild-mod AR. possibly due to afib with RVR and viral illness. Euvolemic on exam Chronic afib with RVR: On Xarelto as outpt but incorrect dose. Should be 20mg daily as normal renal function. Rates controlled Reported CAD: no obstructive disease on cardiac cath 6 months ago per pt/family HTN Asthma with likely exacerbation: more wheezing this am -ok for d/c from my perspective -please d/c with below cardiac meds -diltiazem 120mg daily -metoprolol 50mg BID -lasix 20mg PO daily -Xarelto 20mg Consultation Date/Type/Reason Admit Date/Time Jul 20, 2018 at 14:59 Initial Consult Date 07/18/18 Type of Consult Cardiology Requesting Provider: GUILLE VICENTE MD Date/Time of Note DATE: 07/22/18 TIME: 09:42 24 HR Interval Summary Free Text/Dictation Doing well. Would like to go home Exam/Review of Systems Exam Vitals Vital Signs Date Temp Pulse Resp B/P (MAP) Pulse Ox O2 O2 Flow FiO2 Time Delivery Rate 07/22/18 96 21 08:23 07/22/18 84 20 08:22 07/22/18 98.1 148/87 07:33 (107) 07/21/18 Room Air 15:03 07/18/18 2.0 14:25 Intake and Output 07/21/18 07/21/18 07/22/18 1414:59 22:59 06:59 IntakeIntake Total 840 ml 500 ml BalanceBalance 840 ml 500 ml Constitutional: alert, oriented Neck: supple; No jvd Respiratory: wheezing; No clear to auscultation Cardiovascular: regular rate and rhythm, systolic murmur (2/6 REGGIE); No edema Gastrointestinal: soft, non-tender; No distended Neurological: nl mental status, nl speech Results Result Diagram: 07/22/18 0513 07/20/18 0547 Results 24hrs Laboratory Tests Test 07/22/18 05:13 White Blood Count 15.5 H Red Blood Count 4.55 Hemoglobin 13.3 Hematocrit 41.1 Mean Corpuscular Volume 90.3 Mean Corpuscular Hemoglobin 29.2 Mean Corpuscular Hemoglobin Concent 32.4 Red Cell Distribution Width 12.6 Platelet Count 397 Mean Platelet Volume 10.1 Immature Granulocytes % 1.300 H Neutrophils % 80.0 H Lymphocytes % 12.4 L Monocytes % 6.2 Eosinophils % 0.0 Basophils % 0.1 Nucleated Red Blood Cells % 0.0 Immature Granulocytes # 0.200 H Neutrophils # 12.4 H Lymphocytes # 1.9 Monocytes # 1.0 H Eosinophils # 0.0 Basophils # 0.0 Nucleated Red Blood Cells # 0.0 Medications Medication Current Medications Fluticasone/ Vilanterol (Breo Ellipta 100-25 Mcg Inh) 1 inh DAILY INH Last administered on 07/22/18 09:06; Admin Dose 1 INH; Start 07/18/18 at 09:00 Ipratropium [place] (Atrovent 0.02% (Neb)) 0.5 mg Q6HWA RESP THERAPY HHN Last administered on 07/22/18 08:19; Admin Dose 0.5 MG; Start 07/18/18 at 08:00 Levalbuterol (Xopenex Neb) 0.31 mg Q6H RESP THERAPY PRN HHN SHORTNESS OF BREATH Last administered on 07/21/18 14:42; Admin Dose 0.31 MG; Start 07/18/18 at 06:00 Potassium Chloride (Micro-K) 8 meq DAILY PO Last administered on 07/22/18 09:04; Admin Dose 8 MEQ; Start 07/18/18 at 09:00 Pantoprazole (Protonix Tab) 40 mg DAILY@06 PO Last administered on 07/22/18 05:47; Admin Dose 40 MG; Start 07/18/18 at 06:00 Metoprolol Tartrate (Lopressor) 50 mg BID PO Last administered on 07/22/18 09:05; Admin Dose 50 MG; Start 07/18/18 at 21:00 Rivaroxaban (Xarelto) 20 mg WITH DINNER PO Last administered on 07/21/18 17:17; Admin Dose 20 MG; Start 07/18/18 at 18:00 Furosemide (Lasix) 20 mg DAILY PO Last administered on 07/22/18 09:05; Admin Dose 20 MG; Start 07/19/18 at 09:00 Diltiazem HCl (Cardizem Cd) 120 mg DAILY PO Last administered on 07/22/18at 09:05; Admin Dose 120 MG; Start 07/19/18 at 09:44 OTILIA MARSHALL Jul 22, 2018 09:43
[2018-07-22] MEDS ORDERED: RIVAROXABAN 20 MG TABLET PO ONE (10:30)
--- NOTE | 2018-07-22 23:28 | CONS ---
Assessment/Plan Assessment/Plan Hospital Course (Demo Recall) IMPRESSION AND PLAN: leukocytosis WORSENED ON STEROIDS SMEAR- neg LOOKS REACTIVE MONITOR HYPERCOAGULABLE STATE CONT Anticoagulation for chronic atrial fibrillation. HX Low iron level FERRITIN- N CHF with acute systolic dysfunction with subsequent transient hypoxemia, now improved with addition of diuretics. Obstructive sleep apnea. ATRIAL fibrillation with rapid ventricular rate HTN with chf Bronchial asthma Atherosclerotic cv disease JUVENTINO mild elevation of blood sugar. VK LE Consultation Date/Type/Reason Admit Date/Time Jul 20, 2018 at 14:59 Initial Consult Date 07/18/18 Type of Consult hemeonc Requesting Provider: GUILLE VICENTE MD Date/Time of Note DATE: 07/22/18 TIME: 23:26 24 HR Interval Summary Free Text/Dictation all noted NAD Exam/Review of Systems Exam Vitals Vital Signs Date Temp Pulse Resp B/P (MAP) Pulse Ox O2 O2 Flow FiO2 Time Delivery Rate 07/22/18 77 12:10 07/22/18 97.9 17 127/70 96 11:43 (89) 07/22/18 21 08:23 07/21/18 Room Air 15:03 07/18/18 2.0 14:25 Intake and Output 07/21/18 07/21/18 07/22/18 1515:00 23:00 07:00 IntakeIntake Total 840 ml 500 ml BalanceBalance 840 ml 500 ml Exam GENERAL: Morbidly obese [place] lady, appears comfortable at rest, in no acute distress. NECK: Supple. No JVD or lymphadenopathy. CARDIAC: S1, S2. No added sounds or murmurs. CHEST: Diminished air entry bilaterally with few rales. ABDOMEN: Soft, nontender. No guarding or rebound. EXTREMITIES: No cyanosis, clubbing, + edema. NEUROLOGIC: Grossly intact. No focal deficits. Results Result Diagram: 07/22/18 0513 07/20/18 0547 Results 24hrs Laboratory Tests Test 07/22/18 05:13 White Blood Count 15.5 H Red Blood Count 4.55 Hemoglobin 13.3 Hematocrit 41.1 Mean Corpuscular Volume 90.3 Mean Corpuscular Hemoglobin 29.2 Mean Corpuscular Hemoglobin Concent 32.4 Red Cell Distribution Width 12.6 Platelet Count 397 Mean Platelet Volume 10.1 Immature Granulocytes % 1.300 H Neutrophils % 80.0 H Lymphocytes % 12.4 L Monocytes % 6.2 Eosinophils % 0.0 Basophils % 0.1 Nucleated Red Blood Cells % 0.0 Immature Granulocytes # 0.200 H Neutrophils # 12.4 H Lymphocytes # 1.9 Monocytes # 1.0 H Eosinophils # 0.0 Basophils # 0.0 Nucleated Red Blood Cells # 0.0 KATHLEEN KUMAR MD Jul 22, 2018 23:28
== END 2018-07-22 13:00 | disposition home or self-care (01) | DRG 202 ==
LOC: E/R 23:12 → 6WM 07-18 01:51 → UNDOADMIN 07-18 01:51 → 6WM 07-18 01:52 → OBSVTOIN 07-20 14:59
PROVIDERS: ADMIT Family Medicine; ATTEND Family Medicine
DX: J45.901 Unspecified asthma with (acute) exacerbation (principal); I50.33 Acute on chronic diastolic (congestive) heart failure; I11.0 Hypertensive heart disease with heart failure; J20.9 Acute bronchitis, unspecified; Z79.02 Long term (current) use of antithrombotics/antiplatelets; R07.81 Pleurodynia; G47.33 Obstructive sleep apnea (adult) (pediatric); R19.7 Diarrhea, unspecified; R63.4 Abnormal weight loss; Z68.27 Body mass index [BMI] 27.0-27.9, adult; R09.02 Hypoxemia; I25.10 Atherosclerotic heart disease of native coronary artery without angina pectoris; J06.9 Acute upper respiratory infection, unspecified
CPT/HCPCS: 36415; 71045; 71046; 80053; 80162; 81001; 82550; 82553; 82728; 82787; 83540; 83690; 83735; 83880; 84443; 84484; 85025; 85610; 85651; 85730; 93005; 93306; 94640; 94664; 96374; 96375; G0378; J1940; J1956; J2916; J2920; J2930